=== PATIENT | female | born 1935 | race Caucasian/White ===

== ENCOUNTER 2022-04-23 20:41 | Emergency (ER) | payer MEDICARE, BC, SELFPAY ==
[2022-04-23] VITALS (10 sets, daily range): BP systolic 108–126; BP diastolic 53–81; PULSE 73–125; RESP 18; TEMP 36.3; O2SAT 96–100; BMI 24.0
--- NOTE | 2022-04-23 20:54 | CRLHL7_ITS ---
For Patients: As a result of the Century Cures Act, medical imaging exams and procedure reports are released immediately into your electronic medical record. You may view this report before your referring provider. If you have questions, please contact your health care provider. INDICATION: Fall. TECHNIQUE: Noncontrast CT images acquired through the brain. COMPARISON: None. FINDINGS: Prominence of the ventricles and sulci compatible with [id number] diffuse cerebral volume loss. No mass effect or midline shift. The hickman-white differentiation is maintained. No acute intracranial hemorrhage or pathologic extra-axial fluid collection. Scattered hypoattenuation in the supratentorial white matter, suggestive of mild chronic microvascular ischemic changes. Intracranial atherosclerotic calcifications. Thinning of the ocular lenses. Small subgaleal hematoma anterior right frontal scalp. No calvarial fracture. Minimal right maxillary sinus mucosal thickening. The mastoid air cells are clear. IMPRESSION: 1. No acute intracranial hemorrhage or mass effect. 2. Small subgaleal hematoma in the anterior right frontal scalp. No calvarial fracture. Please note that all CT scans at this facility use dose modulation, iterative reconstruction, and/or weight-based dosing when appropriate to reduce radiation dose to as low as reasonably achievable. Dictated by Scott Omer MD @ 04/23/2022 9:26:45 PM (Electronically Signed)
[2022-04-23] MEDS: 0.9 % SODIUM CHLORIDE 500 ML 500 ML IV (21:17)
[2022-04-23] MEDS: METOPROLOL TARTRATE 1 MG/ML inj 5 MG IVP (21:17)
--- NOTE | 2022-04-23 21:30 | ED_ITS ---
HPI - General Adult General Chief complaint: Head Injury/Pain Stated complaint: Fell and Hit Head,On Blood Thinners Time Seen by Provider: 04/23/22 20:47 Source: patient and family Mode of arrival: ambulatory Limitations: no limitations History of Present Illness HPI narrative: 87-year-old female presenting to the ER approximately 2 hours after she fell and hit her face on the floor. She states that she tripped her kitchen and fell face forward. She states that she hit the top of her forehead on the ground. She was able to get up without significant assistance and she has been acting normally since. However she is on blood thinners and she has a granddaughter who was a nurse who told her that she should present to the ER for evaluation. Patient tells me that she does not have a headache, no nausea or vomiting. She denies dizziness or being lightheaded. No blurry vision or changes in her hearing. She denies any chest pain or shortness of breath. Patient states that she is on a blood thinner because she had a valve replaced. She denies any other injury. Denies any wrist or arm pain. Related Data Home Medications Medication Instructions Recorded Confirmed albuterol sulfate 90 mcg/actuation g inhalation 02/25/22 02/25/22 aerosol inhaler atorvastatin 10 mg tablet 10 mg PO QHS 02/25/22 02/25/22 blood sugar diagnostic (OneTouch #10 ea 02/25/22 02/25/22 Ultra Test strips) calcium carb,cit 300 mg-D3 200 1 tab PO QDAY 02/25/22 02/25/22 unit-min no.34-genistein 13.5 mg tablet (Citracal Plus Bone Density Builder) glipizide 5 mg tablet, extended ea PO 02/25/22 02/25/22 release 24 hr lisinopril 5 mg tablet 5 mg PO QDAY 02/25/22 02/25/22 metformin 500 mg tablet,extended ea PO 02/25/22 02/25/22 release 24 hr warfarin 5 mg tablet 5 mg PO 5XW 02/25/22 02/25/22 Allergies Allergy/AdvReac Type Severity Reaction Status Date / Time No Known Drug Allergies Allergy Verified 02/25/22 12:59 Review of Systems Status of ROS: Reports: 10 or more systems reviewed and unremarkable except as noted in History and below PFSH PFSH Social History Smoking Status: Never smoker How often do you have a drink containing alcohol: never AUDIT-C Alcohol total score: 0 Non-prescribed substance use: denies use Exam Narrative: Exam Narrative: Well-nourished well-developed patient in no acute distress. Alert and oriented x3. Answers questions appropriately. Mood and affect are appropriate. Though ts are goal oriented and rational. No tangential or magical thinking noted. Patient speaks in full sentences without needing to catch her breath. Speech is not slurred or pressured. GCS is 15. There is no obvious bleeding. She is speaking and breathing without HEENT: Normocephalic. Pupils are equally round reactive to light. Extraocular muscles are intact. Conjunctivae are moist without any icterus noted. Moist mucous membranes. Posterior pharynx is normal. Neck is soft without any lymphadenopathy or thyromegaly. No masses are appreciated. She has no tenderness to palpation at the neck. She has decreased range of motion with flexion, extension, side way bending and rotation at the neck-patient is tells me that this is normal for her and she has no new neck pain today. She does have a hematoma over the forehead just at the hairline on the right side. Cardiovascular: Tachycardic, irregularly irregular. Lungs: Clear to auscultation bilaterally no wheezes rhonchi or rales are appreciated. Patient takes deep breaths without any discomfort.No guarding or rebound. No masses or organomegaly appreciated. Extremities: Bilateral lower extremities are without edema. Skin: Well perfused without any obvious rashes. Const: Vital Signs, click to edit/add: Vital Signs - 24 hr 04/23/22 20:57 04/23/22 20:55 04/23/22 21:13 Temperature 97.3 F L Pulse Rate 83 Pulse Rate [Left] 125 H Respiratory Rate 18 Blood Pressure 108/81 Blood Pressure [Ri ght Upper Arm] 112/76 Pulse Oximetry 96 98 Oxygen Delivery Me thod Room Air 04/23/22 21:15 04/23/22 21:17 04/23/22 21:32 Temperature Pulse Rate 92 76 79 Pulse Rate [Left] Respiratory Rate 18 18 18 Blood Pressure 125/71 110/61 116/66 Blood Pressure [Ri ght Upper Arm] Pulse Oximetry 99 97 97 Oxygen Delivery Me thod 04/23/22 21:47 04/23/22 22:02 04/23/22 22:17 Temperature Pulse Rate 74 76 73 Pulse Rate [Left] Respiratory Rate 18 18 18 Blood Pressure 115/61 110/55 L 126/64 Blood Pressure [Ri ght Upper Arm] Pulse Oximetry 97 97 97 Oxygen Delivery Me thod 04/23/22 22:32 Temperature Pulse Rate 76 Pulse Rate [Left] Respiratory Rate 18 Blood Pressure 112/53 L Blood Pressure [Ri ght Upper Arm] Pulse Oximetry 100 Oxygen Delivery Me thod Course Course Hospital Course: Patient proceeded to head CT. In the meantime given her irregularly irregular rhythm with a pulse of 125 we did do an EKG which showed atrial fibrillation with a pulse of 100. Patient fluctuated between 100 and 130. When asked about a history of atrial fibrillation patient was not sure. And she is on anticoagulation for a valve replacement. I was able to pull up her medical history through [employer], there is no mention of a atrial fibrillation in her history. IV was started and patient received 500 mL of normal saline and 5 mg of IV metoprolol. Shortly after that patient flipped back into normal sinus rhythm. Blood pressures remained stable. Repeat EKG showing sinus rhythm with a first- degree AV block and PVCs. She also has a left bundle branch block. Compared this with a previous EKG and the PVCs and the left bundle-branch block are not new. Head CT was read without any acute bleed. Remained asymptomatic while she was here. Proceeded with lab work which was unremarkable. Vital Signs Vital signs: Initial Vital Signs Pulse Oximetry 98 04/23/22 20:55 Vital Signs Pulse Oximetry 98 04/23/22 20:55 Temperature 97.3 F L 04/23/22 20:57 Pulse Rate 76 04/23/22 22:32 Respiratory Rate 18 04/23/22 22:32 Blood Pressure 112/53 L 04/23/22 22:32 Pulse Oximetry 100 04/23/22 22:32 Oxygen Delivery Method 04/23/22 20:57 Medical Decision Making MDM Narrative Medical decision making narrative: 87-year-old female status post a fall with a subgaleal hematoma-we discussed symptomatic treatment reasons for follow-up. Atrial fibrillation-patient switch back to normal sinus rhythm. She is already on anticoagulation. Recommend she follow up with her primary care for further discussion. Medical Records Medical records reviewed: Yes I reviewed the patient's medical records Lab Data Lab results reviewed: Yes I reviewed the patient's lab results Labs: Lab Results 04/23/22 04/23/22 04/23/22 Range/Units 21:03 21:10 21:10 WBC 7.39 (4.50-11.00) K/uL RBC 4.58 (4.00-5.20) m/uL Hgb 12.7 (12.0-16.0) gm/dL Hct 39.5 (33.0-51.0) % MCV 86 (80-100) fL MCH 28 (26-34) pg MCHC 32 (32-36) gm/dL RDW Coeff of Bernardo 14.2 (11.5-15.5) % Plt Count 237 (140-440) K/uL Neut % (Auto) 72.7 H (42.0-72.0) % Lymph % (Auto) 15.4 L (20-44) % [place] % (Auto) 8.1 (0.0-11.0) % Eos % (Auto) 3.2 (0.0-7.0) % Baso % (Auto) 0.5 (0.0-3.0) % Neut # (Auto) 5.40 (1.7-7.0) K/uL Lymph # (Auto) 1.10 (0.90-2.90) K/uL [place] # (Auto) 0.60 (0.00-0.90) K/UL Eos # (Auto) 0.24 (0.00-0.50) K/uL Baso # (Auto) 0.04 (0.00-0.30) K/uL Abs Immat Gran (auto) 0.01 (0.00-0.30) K/uL Imm/Tot Granulo (auto) 0.1 % Sodium 139 (135-149) mmol/L Potassium 4.2 (3.6-5.1) mmol/L Chloride 105 (96-114) mmol/L Carbon Dioxide 29 (20-32) mmol/L BUN 19 (7-30) mg/dL Creatinine 0.7 (0.5-1.5) mg/dL Estimated Creat Clear 29.54 Estimated GFR 85 ml/min Glucose 181 H (60-115) mg/dL Calcium 9.0 (8.4-10.6) mg/dL Total Bilirubin 1.6 H (0.1-1.5) mg/dL Direct Bilirubin 0.0 (0.0-0.5) mg/dL AST 24 (12-35) U/L ALT 20 (4-35) U/L Alkaline Phosphatase 85 (40-150) U/L Troponin I < 0.01 L (0.01-0.04) ng/mL Total Protein 7.3 (6.0-8.3) g/dL Albumin 4.5 (3.3-5.0) g/dL TSH (0.270-4.20) uIU/mL SARS-CoV-2 (PCR) Negative SARS-CoV-2 (Negative) Influenza Type A (PCR) Negative PCR FLU A (Negative) Influenza Type B (PCR) Negative PCR FLU B (Negative) RSV (PCR) Negative PCR RSV (Negative) 04/23/22 Range/Units 21:10 WBC (4.50-11.00) K/uL RBC (4.00-5.20) m/uL Hgb (12.0-16.0) gm/dL Hct (33.0-51.0) % MCV (80-100) fL MCH (26-34) pg MCHC (32-36) gm/dL RDW Coeff of Bernardo (11.5-15.5) % Plt Count (140-440) K/uL Neut % (Auto) (42.0-72.0) % Lymph % (Auto) (20-44) % [place] % (Auto) (0.0-11.0) % Eos % (Auto) (0.0-7.0) % Baso % (Auto) (0.0-3.0) % Neut # (Auto) (1.7-7.0) K/uL Lymph # (Auto) (0.90-2.90) K/uL [place] # (Auto) (0.00-0.90) K/UL Eos # (Auto) (0.00-0.50) K/uL Baso # (Auto) (0.00-0.30) K/uL Abs Immat Gran (auto) (0.00-0.30) K/uL Imm/Tot Granulo (auto) % Sodium (135-149) mmol/L Potassium (3.6-5.1) mmol/L Chloride (96-114) mmol/L Carbon Dioxide (20-32) mmol/L BUN (7-30) mg/dL Creatinine (0.5-1.5) mg/dL Estimated Creat Clear Estimated GFR ml/min Glucose (60-115) mg/dL Calcium (8.4-10.6) mg/dL Total Bilirubin (0.1-1.5) mg/dL Direct Bilirubin (0.0-0.5) mg/dL AST (12-35) U/L ALT (4-35) U/L Alkaline Phosphatase (40-150) U/L Troponin I (0.01-0.04) ng/mL Total Protein (6.0-8.3) g/dL Albumin (3.3-5.0) g/dL TSH 1.850 (0.270-4.20) uIU/mL SARS-CoV-2 (PCR) (Negative) Influenza Type A (PCR) (Negative) Influenza Type B (PCR) (Negative) RSV (PCR) (Negative) Imaging Data CT scan - head: Attestation: I have reviewed the pertinent imaging results. Radiologist's impression: Noncontrast CT images acquired through the brain. COMPARISON: None. FINDINGS: Prominence of the ventricles and sulci compatible with [id number] diffuse cerebral volume loss. No mass effect or midline shift. The hickman-white differentiation is maintained. No acute intracranial hemorrhage or pathologic extra-axial fluid collection. Scattered hypoattenuation in the supratentorial white matter, suggestive of mild chronic microvascular ischemic changes. Intracranial atherosclerotic calcifications. Thinning of the ocular lenses. Small subgaleal hematoma anterior right frontal scalp. No calvarial fracture. Minimal right maxillary sinus mucosal thickening. The mastoid air cells are clear. IMPRESSION: 1. No acute intracranial hemorrhage or mass effect. 2. Small subgaleal hematoma in the anterior right frontal scalp. No calvarial fracture. ECG Data Attestation: I personally reviewed and interpreted this ECG as follows: Discharge Plan Discharge Clinical Impression: Closed head injury, Atrial fibrillation with RVR Patient Disposition: Home, Self-Care Condition: Stable Additional Instructions: As far as her head injury goes it should heal with time. You may experience increased bruising that travels down your face over the next week or 2. This is normal and you should not be concerned. Okay to take Tylenol if you are having a headache. Return to the ER if you start vomiting or become confused. You were found to be in atrial fibrillation today. You have since converted back to normal sinus rhythm. I would recommend you have a follow-up with your primary care provider in the next 1-2 weeks to discuss any next steps necessary. You should return to the ER if you should have chest pain, increased dizziness or lightheadedness and your pulse is racing. Prescriptions: No Action warfarin 5 mg tablet 5 mg PO 5XW Label Comments: 2.5mg PO 2xW glipizide 5 mg tablet extended release 24hr PO Label Comments: TAKE 1 TABLET (5 MG) BY MOUTH ONCE DAILY BEFORE A MEAL. metformin 500 mg tablet extended release 24 hr PO Label Comments: TAKE 2 TABLETS BY MOUTH IN THE MORNING AND 2 TABS IN THE EVENING WITH MEALS. lisinopril 5 mg tablet 5 mg PO QDAY atorvastatin 10 mg tablet 10 mg PO QHS (DME) OneTouch Ultra Test Strip See Rx Instructions .ROUTE .MEDSUPPLY Qty: 10 Label Comments: TEST 1 TIME/DAY Rx Instructions: As directed albuterol sulfate 90 mcg/actuation HFA aerosol inhaler inhalation Citracal Plus Bone Density 300-200-13.5 mg-unit-mg tablet 1 tab PO QDAY Follow Up/Referrals: Provider,Not a Local [Referring] - Stand Alone Forms: [facility] Info Instructions
[2022-04-23 21:37] LABS: Basophils Absolute Auto 0.04 K/uL (0.00-0.30); Basophils Percent Auto 0.5 % (0.0-3.0); Eosinophils Absolute Auto 0.24 K/uL (0.00-0.50); Eosinophils Percent Auto 3.2 % (0.0-7.0); Hematocrit 39.5 % (33.0-51.0); Hemoglobin* 12.7 gm/dL (12.0-16.0); Immature Granulocytes Abs Auto 0.01 K/uL (0.00-0.30); Immature Granulocytes Pct Auto 0.1 %; Lymphocytes Percent Auto 15.4 % (20-44); Mean Corpuscular HGB Conc 32 gm/dL (32-36); Mean Corpuscular Hemoglobin 28 pg (26-34); Mean Corpuscular Volume 86 fL (80-100); Monocytes Percent Auto 8.1 % (0.0-11.0); Neutrophils Percent Auto 72.7 % (42.0-72.0); Platelet Count* 237 K/uL (140-440); RDW Coefficient of Variation % 14.2 % (11.5-15.5); Red Blood Count 4.58 m/uL (4.00-5.20); White Blood Count* 7.39 K/uL (4.50-11.00)
[2022-04-23 21:46] LABS: Slide Review Reflex No
[2022-04-23 21:54] LABS: Albumin* 4.5 g/dL (3.3-5.0); Chloride* 105 mmol/L (96-114); Potassium* 4.2 mmol/L (3.6-5.1); Sodium* 139 mmol/L (135-149)
[2022-04-23 21:56] LABS: Creatinine* 0.7 mg/dL (0.5-1.5); Est. Creatinine Clearance* 29.54; Estimated Glomerular Filt Rate 85 ml/min
[2022-04-23 21:57] LABS: Alanine Aminotransferase* 20 U/L (4-35); Alkaline Phosphatase* 85 U/L (40-150); Aspartate Amino Transferase* 24 U/L (12-35); Bilirubin Total* 1.6 mg/dL (0.1-1.5); Blood Urea Nitrogen* 19 mg/dL (7-30); Carbon Dioxide* 29 mmol/L (20-32); Glucose* 181 mg/dL (60-115); Total Protein* 7.3 g/dL (6.0-8.3)
[2022-04-23 22:09] LABS: Troponin I* < 0.01 ng/mL (0.01-0.04)
[2022-04-23 22:21] LABS: PCR FLU A Negative PCR FLU A (Negative); PCR FLU B Negative PCR FLU B (Negative); PCR RSV Negative PCR RSV (Negative)
[2022-04-23 22:22] LABS: SARS PCR* Negative SARS-CoV-2 (Negative)
== END 2022-04-23 23:03 | disposition home or self-care (01) ==
PROVIDERS: Emergency Provider Family Medicine; PCP Family Medicine
DX: S09.90XA Unspecified injury of head, initial encounter (principal); I48.20 Chronic atrial fibrillation, unspecified
CPT/HCPCS: 36415; 70450; 80048; 80076; 84443; 84484; 85025; 87502; 87634; 87635; 93005; 94761; 99285; J7120

== ENCOUNTER 2022-07-29 18:29 | Emergency (ER) | payer MEDICARE, BC, SELFPAY ==
[2022-07-29 18:45] VITALS: BP 163/83; PULSE 88; RESP 18; TEMP 36.6; O2SAT 93; BMI 24.2
--- NOTE | 2022-07-29 18:54 | CRLHL7_ITS ---
For Patients: As a result of the Century Cures Act, medical imaging exams and procedure reports are released immediately into your electronic medical record. You may view this report before your referring provider. If you have questions, please contact your health care provider. INDICATION: Trauma, fall. TECHNIQUE: Head CT without contrast. COMPARISON: 04/23/2022. FINDINGS: CSF spaces: Within normal limits for age. Brain parenchyma: Mild to moderate diffuse volume loss. Patchy white matter low attenuation changes, nonspecific but likely reflecting chronic small vessel ischemic disease. No sign of mass, hemorrhage, or midline shift. Atherosclerotic calcifications of the cavernous carotids and carotid siphons. Skull base and calvarium: Please refer to separate CT face regarding facial findings. Mastoid air cells are clear. No skull fractures. IMPRESSION: 1. No acute intracranial hemorrhage or mass effect. 2. Please refer to separate CT face regarding facial findings. Please note that all CT scans at this facility use dose modulation, iterative reconstruction, and/or weight-based dosing when appropriate to reduce radiation dose to as low as reasonably achievable. Dictated by Brent Phillips MD @ 07/29/2022 7:43:28 PM (Electronically Signed)
--- NOTE | 2022-07-29 19:02 | CRLHL7_ITS ---
For Patients: As a result of the Cures Act, medical imaging exams and procedure reports are released immediately into your electronic medical record. You may view this report before your referring provider. If you have questions, please contact your health care provider. INDICATION: Facial injury. TECHNIQUE: CT maxillofacial without contrast. COMPARISON: CT head 04/23/2022. FINDINGS: Facial bones: Acute nondisplaced fracture of the superolateral right orbit at the zygomaticofrontal suture. Chronic fracture deformity of the nasal bones, unchanged. Orbits and globes: Right periorbital hematoma. Globes are intact. No sign of intraorbital hemorrhage or emphysema. Sinuses: No acute or significant findings. Soft tissues: Right malar contusion. IMPRESSION: 1. Acute nondisplaced superolateral right orbit fracture at the zygomaticofrontal suture. 2. Right periorbital hematoma. Globes are intact. 3. Right malar contusion. Please note that all CT scans at this facility use dose modulation, iterative reconstruction, and/or weight-based dosing when appropriate to reduce radiation dose to as low as reasonably achievable. Dictated by Brent Phillips MD @ 07/29/2022 7:54:12 PM (Electronically Signed)
[2022-07-29 19:30] VITALS: RESP 26; O2SAT 87
[2022-07-29 19:37] VITALS: RESP 24; O2SAT 98
[2022-07-29 19:38] VITALS: O2SAT 98
--- NOTE | 2022-07-29 19:52 | ED.GENADULT ---
HPI - General Adult General Chief complaint: Laceration/Wound Stated complaint: fell - bleeding above RT eye and fingers Time Seen by Provider: 07/29/22 18:32 Source: patient Mode of arrival: ambulatory Limitations: no limitations History of Present Illness HPI narrative: 87-year-old female coming in today after sustaining a fall. Patient was walking across the parking lot after [employer] and stumbled and fell forward onto her face. She did not lose consciousness. She has had no confusion, vomiting or headache. She does have a laceration to the right eyebrow area which she states does hurt her. She was able to get up with help of her . She does tell me that she fell about 3 months ago as well. She is not interested in talking about any changes in living situation today. She denies any neck or back pain. She states that she did hurt her fingers as well but her legs are intact. Patient is on a blood thinner. She denies any vision loss or blurry vision. No diplopia. Related Data Home Medications Medication Instructions Recorded Confirmed albuterol sulfate 90 mcg/actuation g inhalation 02/25/22 07/21/22 aerosol inhaler atorvastatin 10 mg tablet 10 mg PO QHS 02/25/22 07/21/22 blood sugar diagnostic (OneTouch #10 ea 02/25/22 07/21/22 Ultra Test strips) calcium carb,cit 300 mg-D3 200 1 tab PO QDAY 02/25/22 07/21/22 unit-min no.34-genistein 13.5 mg tablet (Citracal Plus Bone Density Builder) glipizide 5 mg tablet, extended ea PO 02/25/22 07/21/22 release 24 hr lisinopril 5 mg tablet 5 mg PO QDAY 02/25/22 07/21/22 metformin 500 mg tablet,extended ea PO 02/25/22 07/21/22 release 24 hr warfarin 5 mg tablet 5 mg PO 5XW 02/25/22 07/21/22 metoprolol succinate 25 mg tab PO 05/16/22 07/21/22 tablet,extended release 24 hr Allergies Allergy/AdvReac Type Severity Reaction Status Date / Time No Known Drug Allergies Allergy Verified 07/21/22 10:58 Review of Systems Status of ROS: Reports: 10 or more systems reviewed and unremarkable except as noted in History and below PFSH PFSH Surgical History History of hysterectomy Social History Smoking Status: Never smoker How often do you have a drink containing alcohol: never AUDIT-C Alcohol total score: 0 Non-prescribed substance use: denies use service: No Exam Narrative: Exam Narrative: Elderly, thin but well-developed patient in no acute distress. Alert and oriented x3. Answers questions appropriately. Mood and affect are appropriate. Thoughts are goal oriented and rational. No tangential or magical thinking noted. Patient speaks in full sentences without needing to catch her breath. Speech is not slurred or pressured. GCS is 15. HEENT: Normocephalic. Pupils are equally round reactive to light. Extraocular muscles are intact. She has no pain with extraocular movement. Conjunctivae are moist without any icterus noted. Moist mucous membranes. Posterior pharynx is normal. Neck is soft without any lymphadenopathy or thyromegaly. Patient has a hematoma over the right eyebrow area with a superficial abrasion and a laceration that is about a cm and a half in length. That laceration penetrates through the dermis into the subcutaneous tissue but does not penetrate through the subcutaneous tissue. She has no abrasions or lacerations to the nose cheeks or remainder of the face. She has no tenderness to palpation at the neck. No cervical spine tenderness. She has full range of motion at the neck with flexion, extension, side way bending and rotation without difficulty or discomfort. Cardiovascular: Heart is regular rate and rhythm. Lungs: Clear to auscultation bilaterally no wheezes rhonchi or rales are appreciated. Abdomen: Soft and nontender with normal bowel sounds. No guarding or rebound. Extremities: Bilateral lower extremities show trace edema. Normal DP and PT pulses. No evidence of trauma. She does have a very small laceration to the ring finger on the right hand just proximal to the nail. Does not appear that this will need a suture. She also has a avulsion laceration to the tip of the finger on the left hand middle finger where laceration extends just above the tip of the nail into the tip of the finger. Skin: Well perfused. Strength is 5/5 of the upper and lower extremities. Cranial nerves 3-12 are normal. [id number] is normal. There is no nystagmus either horizontally or vertically. Gait is normal. Const: Vital Signs, click to edit/add: Vital Signs - 24 hr 07/29/22 18:45 07/29/22 19:30 07/29/22 19:37 Temperature 97.8 F Pulse Rate [Pulse Oximeter] 88 Respiratory Rate 18 26 H 24 Blood Pressure [Le ft Upper Arm] 163/83 H Pulse Oximetry 93 87 L 98 Oxygen Delivery Me thod Room Air Room Air Nasal Cannula Oxygen Flow Rate 2 07/29/22 19:38 07/29/22 19:38 Temperature Pulse Rate [Pulse Oximeter] Respiratory Rate Blood Pressure [Le ft Upper Arm] Pulse Oximetry 98 98 Oxygen Delivery Me thod Nasal Cannula Oxygen Flow Rate 2 Course Course Hospital Course: Patient went to head CT right away. Head CT, read by me, did not show any acute intracranial bleeding. Patient proceeded with a facial CT and while we were waiting for results with the facial CT we proceeded with suturing her lacerations. Right hand was cleaned in the usual sterile manner and dressed appropriately no suture was necessary for the small laceration. Left hand was cleaned in the usual sterile manner and anesthetized with lidocaine, 2 sutures were placed to hold the skin down against the top of the nail. Wound was then cleaned and dressed. On her face, the area was cleaned with wound cleanser after anesthesia was provided with lidocaine. Laceration was sutured with 4-0 Ethilon. Patient tolerated the procedure well. The other abrasion was cleaned and dressed. Facial CT results came back and showed a?nondisplaced superolateral right orbit fracture at the zygomaticofrontal suture Given that the patient had no difficulty with extraocular movement and no visual changes, no further consultations were pursued. Right before suturing, patient had an episode over she became acutely short of breath and her oxygen saturation dropped to 89%. This episode lasted a few minutes before it completely resolved. Patient tells me that this occurs with her periodically, especially in the morning and is not necessarily unusual. Vital Signs Vital signs: Initial Vital Signs Temperature 97.8 F 07/29/22 18:45 Temperature Source Temporal Artery Scan 07/29/22 18:45 Pulse Rate 88 07/29/22 18:45 Respiratory Rate 18 07/29/22 18:45 Blood Pressure 163/83 H 07/29/22 18:45 Blood Pressure Mean 109 07/29/22 18:45 Pulse Oximetry 93 07/29/22 18:45 Oxygen Delivery Method 07/29/22 18:45 Vital Signs Temperature 97.8 F 07/29/22 18:45 Pulse Rate 88 07/29/22 18:45 Respiratory Rate 18 07/29/22 18:45 Blood Pressure 163/83 H 07/29/22 18:45 Pulse Oximetry 93 07/29/22 18:45 Oxygen Delivery Method 07/29/22 18:45 Temperature 97.8 F 07/29/22 18:45 Pulse Rate 88 07/29/22 18:45 Respiratory Rate 24 07/29/22 19:37 Blood Pressure 163/83 H 07/29/22 18:45 Pulse Oximetry 98 07/29/22 19:38 Oxygen Delivery Method 07/29/22 19:38 Oxygen Flow Rate 2 07/29/22 19:38 Medical Decision Making MDM Narrative Medical decision making narrative: 87-year-old female status post fall with closed head injury and facial fractures per above. We discussed wound hygiene, signs and symptoms of infections, reasons to return for follow-up. And suture removal in approximately 1 week. Also discussed hospital observation overnight verses home discharge and patient states that she feels strong and safe to go home and does not wish to be hospitalized at this time. Medical Records Medical records reviewed: Yes I reviewed the patient's medical records Imaging Data CT scan - head: Attestation: I have reviewed the pertinent imaging results. Radiologist's impression: Head CT without contrast. COMPARISON: 04/23/2022. FINDINGS: CSF spaces: Within normal limits for age. Brain parenchyma: Mild to moderate diffuse volume loss. Patchy white matter low attenuation changes, nonspecific but likely reflecting chronic small vessel ischemic disease. No sign of mass, hemorrhage, or midline shift. Atherosclerotic calcifications of the cavernous carotids and carotid siphons. Skull base and calvarium: Please refer to separate CT face regarding facial findings. Mastoid air cells are clear. No skull fractures. IMPRESSION: 1. No acute intracranial hemorrhage or mass effect. 2. Please refer to separate CT face regarding facial findings. CT facial bones: Attestation: I have reviewed the pertinent imaging results. Radiologist's impression: CT maxillofacial without contrast. COMPARISON: CT head 04/23/2022. FINDINGS: Facial bones: Acute nondisplaced fracture of the superolateral right orbit at the zygomaticofrontal suture. Chronic fracture deformity of the nasal bones, unchanged. Orbits and globes: Right periorbital hematoma. Globes are intact. No sign of intraorbital hemorrhage or emphysema. Sinuses: No acute or significant findings. Soft tissues: Right malar contusion. IMPRESSION: 1. Acute nondisplaced superolateral right orbit fracture at the zygomaticofrontal suture. 2. Right periorbital hematoma. Globes are intact. 3. Right malar contusion. Discharge Plan Discharge Clinical Impression: Orbital fracture, Finger laceration, Facial laceration, Fall Patient Disposition: Home w/ Parent or Adult Condition: Stable Additional Instructions: Okay to take Tylenol as needed/as directed for discomfort or headache. Okay to ice the face today, do not apply ice directly to skin. I do want you to follow-up with your primary care provider 1st thing next week. Return to the ER if you develop confusion, vomiting, or changes in your vision. Prescriptions: No Action warfarin 5 mg tablet 5 mg PO 5XW Label Comments: 2.5mg PO 2xW glipizide 5 mg tablet extended release 24hr PO Label Comments: TAKE 1 TABLET (5 MG) BY MOUTH ONCE DAILY BEFORE A MEAL. metformin 500 mg tablet extended release 24 hr PO Label Comments: TAKE 2 TABLETS BY MOUTH IN THE MORNING AND 2 TABS IN THE EVENING WITH MEALS. lisinopril 5 mg tablet 5 mg PO QDAY atorvastatin 10 mg tablet 10 mg PO QHS (DME) OneTouch Ultra Test Strip See Rx Instructions .ROUTE .MEDSUPPLY Qty: 10 Label Comments: TEST 1 TIME/DAY Rx Instructions: As directed albuterol sulfate 90 mcg/actuation HFA aerosol inhaler inhalation Citracal Plus Bone Density 300-200-13.5 mg-unit-mg tablet 1 tab PO QDAY metoprolol succinate 25 mg tablet extended release 24 hr PO Follow Up/Referrals: Siddharth Marquez MD [Primary Care Provider] - Stand Alone Forms: [employer] Info Instructions
[2022-07-29 20:17] VITALS: PULSE 83; RESP 18; O2SAT 93
== END 2022-07-29 20:46 | disposition home or self-care (01) ==
PROVIDERS: Emergency Provider Family Medicine; PCP Family Medicine
DX: S01.111A Laceration without foreign body of right eyelid and periocular area, initial encounter (principal); S02.31XA Fracture of orbital floor, right side, initial encounter for closed fracture; W01.0XXA Fall on same level from slipping, tripping and stumbling without subsequent striking against object, initial encounter; S61.214A Laceration without foreign body of right ring finger without damage to nail, initial encounter
CPT/HCPCS: 12011; 70450; 70486; 94761; 99283; 99284

== ENCOUNTER 2022-11-08 11:15 | Outpatient (RCR) | payer MEDICARE, BC, SELFPAY ==
--- NOTE | 2022-08-29 16:25 | PT.OPDN ---
[facility] Daily Note [facility] Daily Note Start: 06/14/22 12:55 Freq: Status: Active Protocol: Document 08/29/22 14:24 LSL (Rec: 08/29/22 15:19 LSL [id number]) E-signed By Roma Espinosa, PT PT OP Daily Progress Note Visit Information Note Type Daily Note,Recert/Progress Note Visit Number [id number] Insurance Authorized Visits no auth required Physician Authorized Visits eval and treat Insurance Information Recert Due Date 09/09/22 Insurance Name Medicare B Medical Diagnosis S49.91XA - injury of R shoulder, initial encounter M75.101, M12.811 - rotator cuff tear arthropathy of Right shoulder Treating Diagnosis M25.511 - R shoulder pain M25.611 - R shoulder stiffness Referring Manda Flores/Jeff Subjective Subjective Pt. reports her shoulder is feeling pretty good. I still can't reach up into the cupboard. Combing hair remains a little difficult. Home Exercise Home Exercise Comments [id number] codmans, KYARAOM shoulder protraction, isometric sh flexion, iso sh abd, iso sh add, seated AROM ER, seated shoulder press off chair, seated extension over back of chair, TB row, TB sh extension , S/L ER, S/L hor abd, supine flexion, table flexion slides, table circles CW/CCW, table rainbow slides Objective Other/Pertinent Objective PROM R shoulder flexion 165, abduction 169, IR 60, ER 69 AROM flexion 72, abduction 53, IR (HBB) L5, ER 59 STRENGTH - bicep and tricep 5/ 5, IR 5/5, ER 3+/5, supraspinatus 3/5, shoulder flexion 4/5 Patient Instructed in Risks/Benefits Yes Therapeutic Exercise Therapeutic Exercise Minutes (minutes) 40 Therapeutic Exercise: To Restore -pulleys - flexion 4' Functional Status -seated ER 90 degrees abduction -seated AAROM abduction 5x iso (held) -seated AAROM flexion 5x iso ( held) -seated AAROM scaption 5x iso (held) -supine flexion 2x10, PT stabilizing scapula -supine hor add 2x10 -L sidelying R ER 2#,0# 10x ea , 2# eccentric 10x -S/L hor abd 2x10 -standing wand abduction 10x( HELD) -slanted flexion push 2# 2x10 -seated UE flexion with hands clasped (HELD) with measurements for re-cert Treatment Minutes Timed Code Treatment Minutes 40 Total Treatment Time 40 Billing Units Therapeutic Exercise Units 3 Assessment/Impression Assessment/Impression Arin continues to make slow strength and ROM gains on a 1x /week program. She has made some significant improvements in her AROM over the past 3 weeks. She still needs assistance to maintain proper form and progress into new ranges and strengthening exercises. I expect this to continue for another 2-3 months weekly to every other week. Plan of Care Physical Therapy Goals STG - To be completed in 2-3 weeks: 1. Pt will demonstrate improved shoulder flexion and abduction by 15+ so that she may brush teeth with dominant hand. (MET) 2. Pt will report reduction in shoulder pain by factor of 2 so that they may sleep without waking due to pain while shifting position in the night .(MET) 3. Pt to report consistency with I performance of HEP to allow for best chance of healing tendon and improving shoulder strength and ROM. LTG - To be completed in 8-12 weeks: 1. Pt to be I with HEP so that they may I manage progression of symptoms. 2. Pt will report ability to lay on R shoulder in bed without increase in pain so that they may sleep in preferred position to achieve better night's sleep. 3. Pt will demo ability to raise R arm to 90 degrees without increase in pain so that she may reach for cans of soup in pantry. 4. Pt will demo grossly 4/5 MMT strength for all shoulder motions on R to allow for ease of performing activities including washing and putting away dishes. Daily Plan of Care Continue per POC Recertification Information Recertification Start Date 09/09/22 Recertification Due Date 12/02/22 Reasons to Continue Skilled Therapy less than 90 degrees elevation , strength 3/5 or less in multiple shoulder muscles, impaired ability to comb hair and reach into cabinets Rehabilitation Potential Good Continued Plan of Care and Interventions seth, BUBBA re-ed, manual therapy with emphasis on therex Provider Signature Shows Agreement With POC & Medical Necessity Physician Comment/Change Comment or Changes Physician NPI Number #
== END 2023-01-10 15:52 | disposition home or self-care (01) ==
PROVIDERS: PCP Family Medicine; Visit Provider Orthopaedic Surgery Sports Medicine
DX: S49.91XA Unspecified injury of right shoulder and upper arm, initial encounter (principal); M75.101 Unspecified rotator cuff tear or rupture of right shoulder, not specified as traumatic; M12.811 Other specific arthropathies, not elsewhere classified, right shoulder; S46.211D Strain of muscle, fascia and tendon of other parts of biceps, right arm, subsequent encounter; M25.511 Pain in right shoulder; M25.611 Stiffness of right shoulder, not elsewhere classified; Z51.89 Encounter for other specified aftercare
CPT/HCPCS: 97032; 97110; 97140; 97161

== ENCOUNTER 2024-03-24 10:55 | Emergency (ER) | payer MEDICARE, BC, SELFPAY ==
--- NOTE | 2024-03-24 10:58 | ED_ITS ---
HPI - General Adult General Date Seen: 03/24/24 Chief complaint: Epistaxis/Nosebleed Stated complaint: Nosebleed Time Seen by Provider: 03/24/24 10:58 History of Present Illness HPI narrative: 89 yo F with a history of aortic valve replacement (mechanical valve, atrial fibrillation, who is on longstanding warfarin anticoagulation. She had been off warfarin for several days because she had a mitral valve clipping yesterday. Her mitral valve procedure was performed at the hospital at [facility]. She was on bridging Lovenox for anticoagulation while she was off her warfarin. She still on Lovenox and was restarted on warfarin last night after her successful procedure. She notes that she had a small nosebleed from her left nostril yesterday while she was of the hospital at [place] but was easily controlled. This morning about 8:00 a.m. she had recurrence of nose bleeds. She had more significant bleeding primarily from her left nostril but some from the right. She was also experiencing some blood dripping down the back of her throat. She had a nasal clip from the hospital yesterday and applied it but was not able to get the nose bleed stopped. She and her actually called the ambulance and. Ultimately they came here to the ER by private car. She still having active nose bleeding, mostly from her left nostril but also from the right. Fortunately she is not having any lightheadedness or dizziness. No trouble breathing. No other unusual bleeding or bruising. No recent URI. No nasal trauma. Her nose does not her. Related Data Home Medications ?Medication ?Instructions ?Recorded ?Confirmed albuterol sulfate 90 mcg/actuation g inhalation 02/25/22 07/21/22 aerosol inhaler atorvastatin 10 mg tablet 10 mg PO QHS 02/25/22 07/21/22 blood sugar diagnostic (OneTouch #10 ea 02/25/22 07/21/22 Ultra Test strips) calcium 300 mg-vit D3 200 1 tab PO QDAY 02/25/22 07/21/22 gyyl-zbozqoxr-judehuigl 13.5 mg tablet (Citracal Plus Bone Density Builder) glipizide 5 mg tablet, extended ea PO 02/25/22 07/21/22 release 24 hr lisinopril 5 mg tablet 5 mg PO QDAY 02/25/22 07/21/22 metformin 500 mg tablet,extended ea PO 02/25/22 07/21/22 release 24 hr warfarin 5 mg tablet 5 mg PO 5XW 02/25/22 07/21/22 metoprolol succinate 25 mg tab PO 05/16/22 07/21/22 tablet,extended release 24 hr Allergies Allergy/AdvReac Type Severity Reaction Status Date / Time No Known Drug Allergies Allergy Verified 07/21/22 10:58 PFSH [facility] Surgical History History of hysterectomy Social History Smoking Status: Never smoker How often do you have a drink containing alcohol: never AUDIT-C Alcohol total score: 0 Non-prescribed substance use: denies use service: No Exam Narrative: Exam Narrative: Constitutional: Appears well-developed and well-nourished. Alert. Conversant and calm, despite her active nose bleed. She has a nasal clamp in place and is catching some slow dripping blood with a gauze pad.. Non toxic. HENT: Head: Atraumatic. Nose: Externally normal. No signs of deformity or bruising. She has active bleeding from both nostrils, much more significant from the left. She also has signs of a clot in her posterior oropharynx with some slow active bleeding there. Mouth/Throat: Oral mucosa is clear and moist. no trismus. Pharynx normal. Tonsils symmetric. No tonsillar enlargement, erythema, or exudate. Eyes: Conjunctivae normal. EOM normal. Pupils equal, round, and reactive to light. No scleral icterus. Neck: Normal range of motion. Neck supple. No tracheal deviation present. Cardiovascular: Normal rate, regular rhythm. Normal cap refill Pulmonary/Chest: Effort normal. No stridor. No respiratory distress. Musculoskeletal: RUE: Normal range of motion. No tenderness. No deformity LUE: Normal range of motion. No tenderness. No deformity RLE: Normal range of motion. No edema. No tenderness. No deformity LLE: Normal range of motion. No edema. No tenderness. No deformity Neurological: Alert and oriented to person, place, and time. Normal strength. CN II-VII intact. No sensory deficit. GCS eye subscore is 4. GCS verbal subscore is 5. GCS motor subscore is 6. Normal coordination Skin: Skin is warm and dry. No rash noted. No pallor. Normal capillary refill. Psychiatric: Normal mood. Normal affect. Const: Vital Signs, click to edit/add: Vital Signs - 24 hr 03/24/24 11:01 Temperature 97.4 F L Pulse Rate [Pulse Oximeter] 107 H Respiratory Rate 20 Blood Pressure [Ri ght Upper Arm] 117/82 Pulse Oximetry 97 Oxygen Delivery Me thod Room Air Course Course ED Course: Patient was brought directly from triage to ER room for an I met her there. She had active bleeding from her nose, primarily from the left nostril. Initially her left nostril was full of blood and clots so we were not able to visualize any clear source of bleeding. I applied Afrin 1 spray in the left nostril and then we reapplied pressure with a nasal clamp to stop potential anterior bleeds. With this patient had ongoing bleeding but noted significantly slower bleeding. She did not have any more blood coming out of her right nostril. I rechecked. Bleeding had largely stopped was still somewhat active. I had the patient blow her nose to express clots and blood from the left nares. She did get out some clots roughly 1 x 4 cm in size. She then spit out a clot from a electric refrigerator preparer oropharynx. With this she had some ongoing slow active dark red ble eding. Still not able to visualize a clear source for bleeding. Using a mucosal atomizer device I administered 3 mL of 1% lidocaine with epinephrine. That then placed a cotton ball soaked in 5 mL 2% lidocaine into the patient's left nostril. Recheck-cotton ball removed. At this point no further bleeding. She does have a little bit of red blood in her left nostril which I had her gently removed by blowing her nose. After this I was able to visualize a small area that appears to have been the bleeder on the mucosal surface of her left naris. I cauterized the bleeder using silver nitrate. After this there was no further sign of active bleeding. Recheck-no recurrent bleeding. Recheck-did ambulation trial with the nurses and did well. After walking she did have a brief episode where she coughed up a small clot of blood. There is no signs of any active rebleeding at this point. Suspect this blood clot was probably small clot that had been left over in her nasal cavity and was dislodged by walking. Recheck-05 13. Still no recurrent bleeding. Hemodynamically stable. Vital Signs Vital signs: Initial Vital Signs Temperature 97.4 F L 03/24/24 11:01 Temperature Source Temporal Artery Scan 03/24/24 11:01 Pulse Rate 107 H 03/24/24 11:01 Pulse Rhythm Irregular 03/24/24 11:01 Respiratory Rate 20 03/24/24 11:01 Blood Pressure 117/82 03/24/24 11:01 Blood Pressure Mean 93 03/24/24 11:01 Pulse Oximetry 97 03/24/24 11:01 Oxygen Delivery Method Room Air 03/24/24 11:01 Vital Signs Temperature 97.4 F L 03/24/24 11:01 Pulse Rate 107 H 03/24/24 11:01 Respiratory Rate 20 03/24/24 11:01 Blood Pressure 117/82 03/24/24 11:01 Pulse Oximetry 97 03/24/24 11:01 Oxygen Delivery Method Room Air 03/24/24 11:01 Temperature 97.4 F L 03/24/24 11:01 Pulse Rate 107 H 03/24/24 11:01 Respiratory Rate 20 03/24/24 11:01 Blood Pressure 117/82 03/24/24 11:01 Pulse Oximetry 97 03/24/24 11:01 Oxygen Delivery Method Room Air 03/24/24 11:01 Medications Administered Medications: Generic Name Dose Route Start Last Admin Trade Name Freq PRN Reason Stop Dose Admin Oxymetazoline HCl 1 spray 03/24/24 10:58 03/24/24 11:19 Oxymetazoline 0.05% Nasal [place] NOSTRIL-B 1 spray BID PRN Administration Discontinued Medications Generic Name Dose Route Start Last Admin Trade Name Freq PRN Reason Stop Dose Admin Lidocaine HCl 15 ml 03/24/24 10:58 03/24/24 11:20 Lidocaine Viscous 2% 15 Ml Solution SWISH/SWAL 03/24/24 10:59 15 ml ONCE ONE Administration Lidocaine/Epinephrine 20 ml 03/24/24 10:58 03/24/24 11:19 Lidocaine 1%-Epi 1:100,000 INFILTRATI 03/24/24 10:59 20 ml ONCE ONE Administration Silver Nitrate/Potassium Nitrate 1 each 03/24/24 10:58 03/24/24 11:20 Silver Nitrate Applicator 1 Each Stick..Ea. TOPICAL 03/24/24 10:59 1 each ONCE ONE Administration Tranexamic Acid 1,000 mg 03/24/24 11:15 03/24/24 11:19 Tranexamic Acid 100 Mg/Ml Inj TOPICAL 03/24/24 11:16 1,000 mg ONCE ONE Administration Medical Decision Making MDM Narrative Medical decision making narrative: 89-year-old female with mechanical aortic valve and atrial fibrillation who is post be on long-term warfarin anticoagulation. She is currently on warfarin and Lovenox because she had been off warfarin this week for a mitral valve procedure that was completed yesterday. She presents with epistaxis. At this point I do not think it would be beneficial and check INR because we would expect her INR to measure subtherapeutic since she had just re-initiated warfarin taking her 1st dose yesterday. Suspect that the bleeding was likely a combination of the Lovenox and warfarin. She is hemodynamically stable. No symptoms of dizziness or lightheadedness or orthostasis. At this point I do not think she needs hemoglobin measurement or admission for hemoglobin monitoring. Bleeding was primarily from her left nostril. Initial concern was whether not this was an anterior or posterior bleed. After the above interventions we will to get control of the bleeding and I was able to visualize a site of bleeding on the left nasal septum in the anterior nose. This was cauterized with silver nitrate. And after a long period of observation there has been no recurrent rebleeding. Patient and her are comfortable discharging home. Discussed management at home. Would continue on anticoagulants for now due to the risk of stroke with her mechanical aortic valve and AFib. Discussed humidifier, nasal saline, topical antibiotic ointment in her nostril, all to help prevent rebleeding. Discussed steps to take if she does have recurrent bleeding and potential need for return to the ER. She is in agreement. Discharge Plan Discharge Clinical Impression: Epistaxis Instructions: Nosebleed (ED) Additional Instructions: As we discussed, to help prevent your nose from rebleeding, you can get a humidifier to keep your air in your bedroom at home a little bit more humid. You can use nasal saline spray or Vaseline or antibiotic ointment in her nose to help moisturize and help the mucosal surface inside your nostril heal more quickly. For now it is best for you to continue on your Lovenox and warfarin If you do have another episode of nose bleeding, applied direct pressure with your fingers are within nasal clamp for 10 minutes. If that is not successful in stopping the bleeding, please come back to the ER to be rechecked Prescriptions: No Action warfarin 5 mg tablet 5 mg PO 5XW Patient Comments: 2.5mg PO 2xW glipizide 5 mg tablet extended release 24hr PO Patient Comments: TAKE 1 TABLET (5 MG) BY MOUTH ONCE DAILY BEFORE A MEAL. metformin 500 mg tablet extended release 24 hr PO Patient Comments: TAKE 2 TABLETS BY MOUTH IN THE MORNING AND 2 TABS IN THE EVENING WITH MEALS. lisinopril 5 mg tablet 5 mg PO QDAY atorvastatin 10 mg tablet 10 mg PO QHS (DME) OneTouch Ultra Test Strip See Rx Instructions .ROUTE .MEDSUPPLY Qty: 10 Patient Comments: TEST 1 TIME/DAY Rx Instructions: As directed albuterol sulfate 90 mcg/actuation HFA aerosol inhaler inhalation Citracal Plus Bone Density 300-200-13.5 mg-unit-mg tablet 1 tab PO QDAY metoprolol succinate 25 mg tablet extended release 24 hr PO Follow Up/Referrals: Siddharth Marquez MD [Primary Care Provider] - Stand Alone Forms: [employer] Info Instructions
[2024-03-24 11:01] VITALS: BP 117/82; PULSE 107; RESP 20; TEMP 36.3; O2SAT 97; BMI 23.8
[2024-03-24] MEDS: LIDOCAINE 1%-EPI 1:100,000 20 ML INFILTRATI (11:19)
[2024-03-24] MEDS: OXYMETAZOLINE 0.05% NASAL SPRAY 1 SPRAY NOSTRIL-B (11:19)
[2024-03-24] MEDS: TRANEXAMIC ACID 100 MG/ML INJ 1000 MG TOPICAL (11:19)
[2024-03-24] MEDS: SILVER NITRATE APPLICATOR 1 EACH STICK..EA. TOPICAL (11:20)
== END 2024-03-24 12:44 | disposition home or self-care (01) ==
PROVIDERS: Emergency Provider Emergency Medicine; PCP Family Medicine
DX: R04.0 Epistaxis (principal)
CPT/HCPCS: 30901; 99282; 99283; A9270

== ENCOUNTER 2024-06-21 17:37 | Emergency (ER) | payer MEDICARE, BC, SELFPAY ==
[2024-06-21] VITALS (11 sets, daily range): BP systolic 97–111; BP diastolic 50–78; PULSE 73–94; RESP 18; TEMP 36.7; O2SAT 96–99; BMI 23.8
--- OUTSIDE RECORDS SUMMARY | 2024-06-21 17:41 | XMS_ITS | Clinical Summary ---
Author Organization [facility] Address [place], [place] [address] Care Team Providers Care Oracle Sql Developer Name Role Phone Stacy Urias MD Primary Care Provider Allergies No known active allergies Medications Lancing Device with Lancets (ONE TOUCH DELICA) kitIndications: Type II or unspecified type diabetes mellitus without mention of complication, not stated as uncontrolled As directed. Dispense item covered by pt ins. 250.00 NIDDM type II - Test 1 time/day 1 Kit 5 03/03/20 14 Active fluticasone (50 mcg per actuation) nasal solution (FLONASE)Indica tions:Nasal congestion Inhale 1 [place] into both nostrils once daily. 2 Bottle 2 04/24/20 18 Active amoxicillin (AMOXIL) 500 mg capsule TAKE 4 CAPSULES BY MOUTH 1 HOUR BEFORE DENTAL APPT. 1 10/30/19 19 Active blood sugar diagnostic (OneTouch Ultra Test) stripIndication s:Type 2 diabetes mellitus with diabetic neuropathy, without long-term current use of insulin (HC) TEST 1 TIME/DAY 100 Each 3 12/22/19 24 Active empagliflozin (JARDIANCE) 25 mg tabletIndicatio ns:Type 2 diabetes mellitus with diabetic neuropathy, without long-term current use of insulin (HC) Take 1 Tablet (25 mg) by mouth once daily. 30 Tablet 11 01/01/20 24 Active lisinopriL (PRINIVIL; ZESTRIL) 20 mg tabletIndicatio ns:Essential hypertension TAKE 1 TABLET BY MOUTH EVERY DAY 90 Tablet 1 02/28/20 24 Active calcium carbonate-tomas calciferol, 600mg-200 units, (CALTRATE-600 + VIT D) tablet Take 1 Tablet by mouth once daily with a meal. Active atorvastatin (LIPITOR) 10 mg tablet Take 10 mg by mouth once daily. Active warfarin (COUMADIN) 5 mg tabletIndicatio ns:H/O aortic valve replacement,Ant icoagulation monitoring, INR range 2.5-3.5 Take by mouth 5 mg (5 mg x 1) every Mon, Mon, Mon; 2.5 mg (5 mg x 0.5) all other days in the evening OR as directed 65 Tablet 04/16/20 24 Active glipiZIDE extended-releas e (GLUCOTROL XL) 5 mg Extended-Releas e tabletIndicatio ns:Type 2 diabetes mellitus with diabetic polyneuropathy, without long-term current use of insulin (HC),Diabetic neuropathy with neurologic complication (HC) Take 1 Tablet (5 mg) by mouth once daily before a meal. 90 Tablet 1 04/28/20 24 Active metoprolol succinate (Toprol XL) 50 mg sustained-relea se tabletIndicatio ns:Essential hypertension,An eurysm of ascending aorta without rupture (HC),Paroxysmal atrial fibrillation (HC),H/O aortic valve replacement Take 3 Tablets (150 mg) by mouth once daily. 270 Tablet 3 05/13/20 24 Active metFORMIN (GLUCOPHAGE XR) 500 mg Extended-Releas e tabletIndicatio ns:Type 2 diabetes mellitus with diabetic polyneuropathy, without long-term current use of insulin (HC) TAKE 2 TABLETS (1,000 MG) BY MOUTH TWICE A DAY WITH MEALS 360 Tablet 05/29/19 25 Active cefuroxime axetil (CEFTIN) 500 mg tabletIndicatio ns:Community acquired pneumonia, unspecified laterality Take 1 Tablet (500 mg) by mouth two times daily for 10 days. 20 Tablet 06/11/19 25 025 Active furosemide (LASIX) 20 mg tabletIndicatio ns:H/O aortic valve replacement Take 1 Tablet (20 mg) by mouth once daily in the morning. 90 Tablet 3 06/19/19 25 Active nystatin 100,000 unit/gram creamIndication s:Vaginal itching,Vaginal burning,Dermati tis Apply topically to affected area(s) two times daily. 30 g 06/21/19 25 Active metFORMIN (GLUCOPHAGE XR) 500 mg Extended-Releas e tabletIndicatio ns:Type 2 diabetes mellitus with diabetic polyneuropathy, without long-term current use of insulin (HC) Take 2 Tablets (1,000 mg) by mouth two times daily with meals. 360 Tablet 3 06/08/19 24 025 Discontinued furosemide (LASIX) 20 mg tabletIndicatio ns:H/O aortic valve replacement Take 1 Tablet (20 mg) by mouth every morning. 90 Tablet 3 08/08/19 24 025 Discontinued(Re order (E-cancel not sent)) azithromycin (ZITHROMAX) 500 mg tabletIndicatio ns:Upper respiratory tract infection, unspecified type,Community acquired pneumonia, unspecified laterality Take 1 Tablet (500 mg) by mouth every 24 hours for 5 days. 5 Tablet 06/11/19 25 025 Active Problems Problem Noted Date Diagnosed Date Acute on chronic heart failu re with preserved ejection fraction 06/11/2024 Vision changes 03/29/2024 Chronic heart failure with preserved ejection fr action 03/22/2024 CKD (chronic kidney disease), stage II Nonrheumatic mitral valve regurgitation 10/30/19 24 Paroxysmal atrial fibrillation 07/18/2023 [place] of foot 10/18/2022 Personal history of fall 06/28/2022 Rotator cuff tear arthropathy of right shoulder 06/06/2022 Injury of right shoulder 06/06/2022 Ascending aortic aneurysm 10/12/2021 Overview (10/12/2021): CT 4.3cm 10/12/21. Repeat echocardiogram in 1 year. Warfarin anticoagulation 08/10/2021 Bilateral pseudophakia 04/22/2019 Diabetic nephropathy with proteinuria 06/27/2016 Hyperopia of both eyes with astigmatism and pres byopia 05/02/2016 Ocular rosacea 05/02/2016 Dermatochalasis of both upper eyelids 04/21/2015 Essential hypertension 11/14/2014 Rotator cuff tear, right 07/02/2014 Overview (07/02/2014): Jun 2014: rotator cuff tear and acute proximal biceps tendon rupture. referral to Orthopedics. Anticoagulation monitoring, INR range 2.5-3.5 Benign essential tremor 11/08/2013 Overview (11/08/2013): Saw Dr. Raul Easley 08/21/13. No tx at this time. H/O aortic valve replacement 03/20/2012 Colon polyp 01/24/2011 Overview (01/24/2011): Colonoscopy 01/2011 polyp repeat in 5 years Gastric ulcer 01/24/2011 Overview (01/24/2011): EGD 01/2011 ulcer, reactive gastropathy Osteopenia 04/16/2007 Overview (04/16/2007): bone density 2006, needs repeat in 2 yrs Osteoarthrosis, unspecified whether generalized or localized, unspecified site 12/14/2005 Major depressive disorder, r ecurrent episode, in full remission 03/26/2004 HYPERCHOLESTEROLEMIA, PURE 08/14/2000 Multinodular goiter 07/28/2000 Type 2 diabetes mellitus wit h diabetic polyneuropathy, without long-term current use of insulin 09/27/1999 Overview (03/31/2015): Follow up every 4 months for DIABETES MELLITUS visits Has peripheral neuropathy- mild 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 Resolved Problems Problem Noted Date Diagnosed Date Resolved Date Upper respiratory tract infection 01/13/2017 10/30/2023 Encounters Date Type Department Care Team Description 06/21/2024 9:35 AM SPECIAL DELIVERY WORKER [place] [facility] [address] [place], [place] [phone] Anna Lockhart PA Vaginal Problem (x1-2 weeks) 06/21/2024 Telephone [facility] [address] [place], [place] [phone] Stacy Urias MD Anticoagulation (INR >5) 06/21/2024 Nurse Triage [facility] [address] [place], [place] [phone] Stacy Urias MD Head Injury 06/21/2024 Anticoagulation (warfarin) [facility] [address] [place] [address] Clinic, [facility] Anticoagulation 06/21/2024 Travel 06/19/2024 Telephone [facility] [address] [place] [phone] Glenn Lazaro MD Medication Management (Lasix) 06/14/2024 10:00 AM SPECIAL DELIVERY WORKER Orders Only [facility] [address] [place] [address] Lab, Farm Lab 06/14/2024 Anticoagulation (warfarin) [facility] [address] [place] [address] [facility], [facility] Anticoagulation 06/14/2024 Travel 06/11/2024 10:50 AM SPECIAL DELIVERY WORKER Office Visit [facility] [address] [place] [address] Stacy Urias MD Cough (X one month but got much worse this weekend. Patient is audially wheezing and cannot stop coughing) 06/11/2024 10:25 AM SPECIAL DELIVERY WORKER Ancillary Procedure [facility] [address] [place] [address] 06/11/2024 Telephone [facility] [address] [place] [address] Stacy Urias MD Results 06/11/2024 Anticoagulation (warfarin) [facility] [address] [place] [address] Clinic[facility] Anticoagulation (Chart update: BPA) 06/11/2024 Telephone [facility] [address] [place] [address] Stacy Urias MD Anticoagulation (BPA Azithromycin ) 06/11/2024 Travel 06/07/2024 Nurse Triage [facility] [address] [place] [address] Stacy rUias MD Cough 05/27/2024 Refill [facility] [address] [place] [address] Stacy Urias MD Refill Request (Metformin) 05/22/2024 10:00 AM SPECIAL DELIVERY WORKER Orders Only [facility] [address] [place] [address] Lab, Farm Lab 05/22/2024 Anticoagulation (warfarin) [facility] [address] [place] [address] Clinic, [facility] Inr Anticoagulation 05/22/2024 Travel 05/13/2024 Telephone [facility] [address] [phone] Glenn Lazaro MD Medication Management (Metoprolol) 05/03/2024 3:30 PM SPECIAL DELIVERY WORKER Office Visit [facility] [address] [phone] Glenn Lazaro MD CV Valve Est (VALVE EST: 30DAY S/P MITRACLIP, LABS ECHO PRIOR, NEEDS EKG, KCCQ12, LETTER GIVEN, HJK//PCP: Stacy Urias MD/) 05/03/2024 3:00 PM SPECIAL DELIVERY WORKER Orders Only [facility] [address] [place] [phone] Lab 05/02/2024 2:00 PM SPECIAL DELIVERY WORKER Office Visit [facility] [address] [place] [address] Hay Ellsworth, OD Eye Exam (DM CEE) 05/02/2024 Travel 05/02/2024 Orders Only [facility] [address] [phone] VerónicaGlenn Maldonado MD <No scans attached> 04/28/2024 Refill [facility] [address] [place] [place] [address] Stacy Urias MD Refill Request (Glipizide Extended-release) 04/24/2024 Refill [facility] [address] [place] [address] Stacy Urias MD Refill Request (Glipizide/) 04/17/2024 2:00 PM SPECIAL DELIVERY WORKER Office Visit [facility] [address] [place] [address] Mitch Garcia, AuD Hearing Problem 04/17/2024 Travel 04/16/2024 1:20 PM SPECIAL DELIVERY WORKER Office Visit [facility] [address] [place] [address] Stacy Urias MD Diabetes (follow up) 04/16/2024 Telephone [facility] [address] [place] [address] Stacy Urias MD Results 04/16/2024 Anticoagulation (warfarin) [facility] [address] [place] [address] Clinic, [facility] Inr Anticoagulation 04/15/2024 2:00 PM SPECIAL DELIVERY WORKER Orders Only [facility] [address] [place] [address] Lab, [facility] 04/15/2024 11:00 AM SPECIAL DELIVERY WORKER Ancillary Procedure [facility] [address] [place] [phone] 04/15/2024 Travel 04/14/2024 Refill [facility] [address] [place] [address] Stacy Urias MD Refill Request (Warfarin) 04/05/2024 2:00 PM SPECIAL DELIVERY WORKER Orders Only [facility] [address] [place] [address] Lab, [facility] 04/05/2024 Telephone [facility] [address] [place] [address] Stacy Urias MD Anticoagulation (Dosing to PCP) 04/05/2024 Anticoagulation (warfarin) [facility] [address] [place] [address] Clinic, [facility] Anticoagulation 04/05/2024 Travel 03/29/2024 10:50 AM SPECIAL DELIVERY WORKER Office Visit [facility] [address] [place] [address] Stacy Urias MD [facility] F/U (03/22/24 patient was seen due to her mitral valve regurgitation, patient has had nose bleeds, back pain, eye sight is not the same as usual ) 03/29/2024 10:15 AM SPECIAL DELIVERY WORKER Orders Only [facility] [address] [place] [address] Lab, [facility] Lab 03/29/2024 Anticoagulation (warfarin) [facility] [address] [place] [address] [facility], [facility] Inr Anticoagulation (Provider OV) 03/26/2024 1:00 PM SPECIAL DELIVERY WORKER Orders Only [facility] [address] [place] [address] Lab, [facility] Lab 03/26/2024 Telephone [facility] [address] [place] [address] Stacy Urias MD Anticoagulation (Dosing review) 03/26/2024 Anticoagulation (warfarin) [facility] [address] [place] [address] Clinic, [facility] Anticoagulation 03/26/2024 Travel 03/25/2024 Patient Outreach [facility] [address] [place] [address] Blanca Chinchilla, GUSTABO Primary RN Care Management; Hospital F/U (S/P mitral valve clip implantation, DOD: 03/23/24, LACE+: 55) 03/24/2024 Telephone [facility] [address] [facility] [address] [place] [address] Leobardo Be MD, PhD Concerns 03/22/2024 2:08 PM SPECIAL DELIVERY WORKER Anesthesia Event [facility] [address] [place], [place] [phone] Wendi Reed MD [place], Lorrie Toledo, PHYSIOTHERAPY ASSISTANT 03/22/2024 9:34 AM SPECIAL DELIVERY WORKER - 03/23/2024 11:30 AM SPECIAL DELIVERY WORKER Hospital Encounter [facility] [address] [place] [address] Leobardo Be MD, PhD Nick Olsen MD [facility] S/P mitral valve clip implantation (Primary Dx); Mitral valve insufficiency, unspecified etiology; H/O aortic valve replacement Discharge Disposition: Home Self Care 03/22/2024 Travel from Last 3 Months Immunizations Name Administration Dates Next Due COVID-19 vaccine ([employer] NTech 30mcg/0.3mL) PFJULIA 08/06/2020,07/16/2020 HepA-HepB (Twinrix) 10/11/2013 Hepatitis B (Adult) 11/08/2013 INFLUENZA, IIV3 PF (AGE >= 6 MO) 02/16/2011 Influenza RIV4 (Age 18+ Year s) PRESERV FREE 02/08/2019 Influenza, High-dose Inactivated 024,02/01/2018,02/01/2017,2015,03/16/2015,02/26/2014,02/27/2012 Influenza, High-dose Quadriv alent Inactivated 03/24/2023,03/09/2022,04/02/2021,2019 Influenza, IIV3 (Age >=3 years) 02/29/20 13,02/16/2011,03/16/2010,2006,03/10/2005,03/01/2004,03/27/2003 Influenza, Inactivated IIV3 (Age 65+ Years) Preserv Free 01/27/2020,02/22/2019,01/13/2018,2016 Pneumococcal Poly,23-Valent (Pneumovax) 03/27/2003,11/11/2002 Pneumococcal conj 13-Valent (Prevnar 13) 03/31/2015 Td (Age >=7 Years) 11/11/2002 Tdap 05/16/2022,03/26/2013 Zoster (Zostavax-ZVL, live) 03/16/2010 Family History Medical History Relation Name Comments Stroke Brother 1 Stroke Brother 2 Diabetes Father Heart Disease Father Other Maternal Grandfather blind Heart Disease Mother Genetic Other lazy eye-son an d niece Cancer-breast No Family History Cancer-ovarian No Family History Relation Name Status Comments Brother 1 Brother 2 Father Maternal Grandfather Maternal Grandmother Mother Other Paternal Grandfather Paternal Grandmother Social History Tobacco Use Types Packs/Day Years Used Date Smoking Tobacco: Never Passive Smoke Exposure: Never Smokeless Tobacco: Never Tobacco Cessation:Counseling Given: Yes Alcohol Use Standard Drinks/Week Comments Not Currently 0 (1 standard drink = 0.6 oz pure alcohol) occasional, usually just for special family occasions PHQ-2 Answer Date Recorded PHQ-2 TOTAL SCORE 1 10/30/2023 Social Connections Answer Date Recorded Do you often feel lonely or isolated from those around you? 0 03/22/2024 Financial Resource Strain Answer Date R ecorded Difficulty of Paying Living Expenses 3 10/30/2023 Difficulty of Paying Living Expenses Not on file 10/30/2023 Food Insecurity Answer Date Recorded Do you worry your food will run out before you are able to buy more? 1 03/22/2024 Transportation Needs Answer Date Record ed Does lack of transportation keep you from medica l appointments? 1 03/22/2024 Does lack of transportation keep you from work, meetings or getting things that you need? 1 03/22/2024 Housing Stability Answer Date Recorded What is your housing situation today? 1 03/22/2024 Interpersonal Safety Answer Date Record ed Are you being hit, kicked, p ushed or yelled at (see row info)? No 03/22/2024 Interpersonal Safety Abuse 12 - 18 Not on file 03/22/2024 Interpersonal Safety Ambulatory Vulnerability No t on file 03/22/2024 Utilities Answer Date Recorded Do you have trouble paying f or utilities (for example, heat, electricity, water, phone)? 1 03/22/2024 Comments No Sex and Gender Information Value Date Recorded Sex Assigned at Not on file Legal Sex Female 5:21 AM SPECIAL DELIVERY WORKER Gender Identity Not on file Sexual Orientation Not on file Obstetrics History Para Term AB IAB SAB Ectopic Multiple Livin g Live Births 12 12 12 0 0 0 0 0 0 12 Date Outcome GA Total Labor Labor/2nd/3rd Weight Sex Type Anes PTL Renay A1 A5 Name Clin Term Term Term Term Term Term Term Term Term Term Term Term Last Filed Vital Signs Vital Sign Reading Time Taken Comments Blood Pressure 100/62 06/21/2024 9:39 AM SPECIAL DELIVERY WORKER Pulse 90 06/21/2024 9:39 AM SPECIAL DELIVERY WORKER Temperature 36.4 C (97.6 F) 06/21/2024 9:39 AM SPECIAL DELIVERY WORKER Respiratory Rate 18 03/23/2024 5:19 AM SPECIAL DELIVERY WORKER Oxygen Saturation 96% 06/11/2024 10:14 AM SPECIAL DELIVERY WORKER Inhaled Oxygen Concentration - - Weight 53.7 kg (118 lb 4.8 oz) 06/21/2024 9:39 A M SPECIAL DELIVERY WORKER Height 149.9 cm (4' 11) 05/03/2024 2:58 PM SPECIAL DELIVERY WORKER Body Mass Index 23.89 05/03/2024 2:58 PM SPECIAL DELIVERY WORKER Plan of Treatment Health Maintenance Due Date Last Done Comments Zoster (shingles) series for age 50+ (2 of 3) 05/11/2010 03/16/2010 RSV vaccine for adults or (1 - 1-dose 75+ series) 02/29/2012 Depression screening for age 12+ 10/29/2024 10/30/2023, 08/08/2022, 08/05/2022, Additional history exists Medicare Wellness for age 65+ 10/30/2024, 08/02/2022, 10/20/2020, Additional history exists BMI (ht and wt on same day) for age 18+ 05/03/2025 05/03/2024, 03/29/2024, 03/15/2024, Additional history exists Tetanus booster 05/16/2032 05/16/2022, 03/15, 11/11/2002 DEXA/DXA scan for age 65+ Completed 05/26/2009, Pneumococcal series for age 50+ Completed 03/31/2015, 03/27/2003, 11/11/2002 Tdap Completed 05/16/2022, 03/26/2013 COVID-19 vaccine series Completed 01/28/20 24, 03/24/2023, 03/09/2022, Additional history exists Influenza for age 65+ Completed 01/28/2024 , 03/24/2023, 03/09/2022, Additional history exists Procedures Procedure Name Priority Date/Time Associated Diagnosis Comments PROTIME-INR Routine 06/21/2024 10:26 AM SPECIAL DELIVERY WORKER H/O aortic valve replacement Anticoagulation monitoring, INR range 2.5-3.5 URINALYSIS MICROSCOPIC Routine 06/21/2024 10:26 AM SPECIAL DELIVERY WORKER Dysuria Urinary frequency URINALYSIS MACROSCOPIC - [facility] ONLY POC DIP (QUEST) Routine 06/21/2024 10:07 AM SPECIAL DELIVERY WORKER Dysuria Urinary frequency INR,POCT Routine 06/14/2024 10:01 AM SPECIAL DELIVERY WORKER H/O aortic valve replacement Anticoagulation monitoring, INR range 2.5-3.5 XR CHEST 2 VIEWS PA AND LATERAL Routine 06/11/2024 10:34 AM SPECIAL DELIVERY WORKER Upper respiratory tract infection, unspecified type Acute cough INR,POCT Routine 05/22/2024 10:09 AM SPECIAL DELIVERY WORKER H/O aortic valve replacement Anticoagulation monitoring, INR range 2.5-3.5 CBC W PLT NO DIFF Routine 05/03/2024 2:5 4 PM SPECIAL DELIVERY WORKER S/P mitral valve clip implantation Nonrheumatic mitral valve disorder, unspecified BASIC METABOLIC PANEL Routine 05/03/2024 2:54 PM SPECIAL DELIVERY WORKER S/P mitral valve clip implantation EKG 12 LEAD Routine 05/03/2024 2:52 PM SPECIAL DELIVERY WORKER Severe mitral regurgitation HEMOGLOBIN A1C MONITORING (POCT) Routine 04/15/2024 4:44 PM SPECIAL DELIVERY WORKER Type 2 diabetes mellitus with diabetic polyneuropathy, without long-term current use of insulin (HC) RED CELL MORPHOLOGY Routine 04/15/2024 1 :57 PM SPECIAL DELIVERY WORKER Severe mitral regurgitation PROTIME-INR Routine 04/15/2024 1:57 PM SPECIAL DELIVERY WORKER H/O aortic valve replacement Anticoagulation monitoring, INR range 2.5-3.5 CBC W PLT NO DIFF Routine 04/15/2024 1:5 7 PM SPECIAL DELIVERY WORKER Severe mitral regurgitation BASIC METABOLIC PANEL Routine 04/15/2024 1:57 PM SPECIAL DELIVERY WORKER Severe mitral regurgitation ECHO TTE LIMITED W CONTRAST Routine 04/15/2024 12:03 PM SPECIAL DELIVERY WORKER Severe mitral regurgitation INR,POCT Routine 04/05/2024 1:50 PM SPECIAL DELIVERY WORKER H/O aortic valve replacement Anticoagulation monitoring, INR range 2.5-3.5 PROTIME-INR Routine 03/29/2024 11:30 AM SPECIAL DELIVERY WORKER H/O aortic valve replacement Anticoagulation monitoring, INR range 2.5-3.5 PLATELET COUNT STAT 03/26/2024 12:55 PM SPECIAL DELIVERY WORKER H/O aortic valve replacement Anticoagulation monitoring, INR range 2.5-3.5 PROTIME-INR STAT 03/26/2024 12:55 PM SPECIAL DELIVERY WORKER H/O aortic valve replacement Anticoagulation monitoring, INR range 2.5-3.5 ECHO TTE LIMITED W CONTRAST W COLOR W DOPPLER Routine 03/23/2024 10:58 AM SPECIAL DELIVERY WORKER EKG 12 LEAD Early AM 03/23/2024 6:03 AM SPECIAL DELIVERY WORKER APTT Timed 03/23/2024 5:01 AM SPECIAL DELIVERY WORKER PROTIME-INR Early AM 03/23/2024 5:01 AM SPECIAL DELIVERY WORKER BASIC METABOLIC PANEL Early AM 03/23/2024 5:01 AM SPECIAL DELIVERY WORKER CBC W PLT NO DIFF Early AM 03/23/2024 5:0 1 AM SPECIAL DELIVERY WORKER EKG 12 LEAD RIVKA 03/22/2024 5:33 PM SPECIAL DELIVERY WORKER CREATININE RIVKA 03/22/2024 4:11 PM SPECIAL DELIVERY WORKER BUN RIVKA 03/22/2024 4:11 PM SPECIAL DELIVERY WORKER HEMATOCRIT RIVKA 03/22/2024 4:11 PM SPECIAL DELIVERY WORKER HEMOGLOBIN RIVKA 03/22/2024 4:11 PM SPECIAL DELIVERY WORKER PLATELET COUNT RIVKA 03/22/2024 4:11 PM SPECIAL DELIVERY WORKER APTT RIVKA 03/22/2024 4:11 PM SPECIAL DELIVERY WORKER PROTIME-INR RIVKA 03/22/2024 4:11 PM SPECIAL DELIVERY WORKER ECHO LIGIA TRANSCATHETER INTRAOP PROCEDURE Routine 03/22/2024 3:43 PM SPECIAL DELIVERY WORKER Mitral valve insufficiency, unspecified etiology HCHG ACTIVATED CLOTTING TM CV Timed 03/22/2024 3:23 PM SPECIAL DELIVERY WORKER HCHG ACTIVATED CLOTTING TM CV Timed 03/22/2024 2:58 PM SPECIAL DELIVERY WORKER ENDOTRACHEAL TUBE Routine 03/22/2024 2:5 2 PM SPECIAL DELIVERY WORKER ENDOTRACHEAL TUBE Routine 03/22/2024 2:5 2 PM SPECIAL DELIVERY WORKER CVL OTHER PROCEDURE Routine 03/22/2024 2 :43 PM SPECIAL DELIVERY WORKER RBC W/O TYPE & SCREEN STAT 03/22/2024 1:43 PM SPECIAL DELIVERY WORKER RED BLOOD CELLS EA UNIT STAT 03/22/2024 1:40 PM SPECIAL DELIVERY WORKER RED BLOOD CELLS EA UNIT STAT 03/22/2024 1:40 PM SPECIAL DELIVERY WORKER PROTIME-INR Today 03/22/2024 11:57 AM SPECIAL DELIVERY WORKER TYPE & SCREEN Preop 03/22/2024 11:54 AM SPECIAL DELIVERY WORKER GLUCOSE, FASTING Preop 03/22/2024 11:5 4 AM SPECIAL DELIVERY WORKER SCAN-CARDIAC STRIP 03/22/2024 12 :00 AM SPECIAL DELIVERY WORKER XR DXA BONE DENSITY 2 SITES AXIAL Routine 05/26/2009 2:09 PM SPECIAL DELIVERY WORKER Osteopenia from Last 3 Months or Most Recently Relevant to Health Maintenance Results * URINALYSIS MICROSCOPIC (06/21/2024 10:26 AM SPECIAL DELIVERY WORKER) RBC 0-2 0-2, None Seen /HPF 06/21/2024 3:37 PM SPECIAL DELIVERY WORKER [facility] WBC 0-2 0-2, 3-5, None Seen /HPF 06/21/2024 3:37 PM SPECIAL DELIVERY WORKER [facility] BACTERIA None Seen None Seen, Rare, Few Bacteria/ HPF 06/21/2024 3:37 PM SPECIAL DELIVERY WORKER [facility] EPITHELIAL CELLS None Seen None Seen, Few Epi/HPF 06/21/2024 3:37 PM SPECIAL DELIVERY WORKER [facility] HYALINE CASTS 3-5 0-2, 3-5 /LPF 06/21/2024 3:37 PM SPECIAL DELIVERY WORKER [facility] Urine URINE SPECIMEN / Unknown Non-Blood / Unknown 06/21/2024 10:26 AM SPECIAL DELIVERY WORKER 06/21/2024 10:26 AM SPECIAL DELIVERY WORKER Anna CELESTIN URINE Final Result [facility] [address] [place] [id number], [place] * (ABNORMAL) PROTIME-INR [37146.0] - Standing Order (06/21/2024 10:26 AM SPECIAL DELIVERY WORKER) Only the most recent of7 resultswithin the time period is included. INR >16.0(HH) <1.3 06/21/2024 4:38 PM SPECIAL DELIVERY WORKER [facility] PROTIME >160.0(H) 10.6 - 12.4 sec 06/21/2024 4:38 PM SPECIAL DELIVERY WORKER [facility] Blood BLOOD SPECIMEN / Unknown [facility] Collect / Unknown 06/21/2024 10:26 AM SPECIAL DELIVERY WORKER 06/21/2024 10:26 AM SPECIAL DELIVERY WORKER Narrative [facility] - 06/21/2024 4:38 PM SPECIAL DELIVERY WORKER Therapeutic Range 2.0-3.0 for most anticoagulated patients 2.5-3.5 or 4.0 for high risk patients The INR is only used for patients on stable oral anticoagulant therapy. It makes no significant contribution to the diagnosis or treatment of patients whose Protime is prolonged for other reasons. INR results are increased when heparin levels exceed 1.0 U/mL, which corresponds to an aPTT >125 seconds if the patient is on UFH. us Stacy Urias MD HEMATOLOGY Final Resul t [facility] [address] [place] [address], [place] * (ABNORMAL) POCT Urinalysis Dipstick Only (06/21/2024 10:07 AM SPECIAL DELIVERY WORKER) PH 5.5 5.0 - 8.0 [facility] SPECIFIC GRAVITY 1.010 1.001 - 1.035 [facility] GLUCOSE 2+(A) NEGATIVE [facility] BILIRUBIN NEGATIVE NEGATIVE [facility] KETONES NEGATIVE NEGATIVE [facility] OCCULT BLOOD 1+(A) NEGATIVE [facility] PROTEIN NEGATIVE NEGATIVE [facility] NITRITE NEGATIVE NEGATIVE [facility] LEUKOCYTE ESTERASE NEGATIVE NEGATIVE [facility] Urine URINE SPECIMEN / Unknown 06/21/2024 10:07 AM SPECIAL DELIVERY WORKER 06/21/2024 10:13 AM SPECIAL DELIVERY WORKER Anna CELESTIN URINE Final Result Performing Organization Address City/[facility]/ZIP Co de Phone Number [facility] [address] [address] [facility] [address], [facility] [address] [facility] [address] [place] [address] * (ABNORMAL) INR - POCT [[id number]] - Standing Order (06/14/2024 10:01 AM SPECIAL DELIVERY WORKER) Only the most recent of3 resultswithin the time period is included. INR 2.4(H) ratio [facility] Comment: INRs >2.9 may be falsely elevated in patients receiving either unfractionated Heparin or Low Molecular Weight Heparin. Follow up testing in a hospital laboratory may be helpful if clinically indicated. INR results of > or = 5.0 should be verified using the standard venipuncture procedure. Reference Range 0.9-1.1 Moderate-intensity Warfarin Therapy 2.0-3.0 Higher-intensity Warfarin Therapy 3.0-4.0 PROTHROMBIN TIMEP 28.4(H) 10.5 - 13.1 sec [facility] Comment: Point of care fingerstick Prothrombin Time/INR results may vary from venous Prothrombin Time/INR methodologies. Any results exhibiting inconsistency with the patient's clinical status should be repeated using a venous Prothrombin Time/INR method. Blood BLOOD SPECIMEN / Unknown 06/14/2024 10:01 AM SPECIAL DELIVERY WORKER 06/14/2024 10:02 AM SPECIAL DELIVERY WORKER Stacy Urias MD LABORATORY Final Resul t [facility] [address] [facility] [place] [address], [facility] [address] [place] [address] * XR CHEST 2 VIEWS PA AND LATERAL (06/11/2024 10:34 AM SPECIAL DELIVERY WORKER) Anatomical Region Laterality Modality CHEST, THORAX, Lung, HEART Compu zainab Radiography 06/11/2024 1:19 PM SPECIAL DELIVERY WORKER Impressions 06/11/2024 1:19 PM SPECIAL DELIVERY WORKER Small pleural effusions. No infiltrate. Dictated by Raul Almanza MD @ 06/11/2024 1:19:12 PM (Electronically Signed) Narrative 06/11/2024 1:19 PM SPECIAL DELIVERY WORKER For Patients: As a result of the Cures Act, medical imaging exams and procedure reports are released immediately into your electronic medical record. You may view this report before your referring provider. If you have questions, please contact your health care provider. INDICATION: Upper respiratory tract infection, unspecified type TECHNIQUE: Chest 2 views COMPARISON: CT 12/25/2023, x-ray 08/09/2023 FINDINGS: Chronic deformity of the right ribcage and left clavicle. Degenerative changes at both shoulders. Stable density associated with the right proximal humerus. Stable mediastinal contours. Mild areas of scarring. Small pleural effusions. No consolidative infiltrate. Procedure Note Raul Almanza MD - 06/11/2024 For Patients: As a result of the Cures Act, medical imagingexams and procedure reports are released immediately into your electronicmedical record. You may view this report before your referring provider.If you have questions, please contact your health care provider. INDICATION: Upper respiratory tract infection, unspecified type TECHNIQUE: Chest 2 views COMPARISON: CT 12/25/2023, x-ray 08/09/2023 FINDINGS: Chronic deformity of the right ribcage and left clavicle. Degenerativechanges at both shoulders. Stable density associated with the rightproximal humerus. Stable mediastinal contours. Mild areas of scarring.Small pleural effusions. No consolidative infiltrate. IMPRESSION: Small pleural effusions. No infiltrate. Dictated by Raul Almanza MD @ 06/11/2024 1:19:12 PM (Electronically Signed) us Stacy Urias MD GENERAL IMAGING Final Resul t * (ABNORMAL) CBC W PLT NO DIFF (05/03/2024 2:54 PM SPECIAL DELIVERY WORKER) Only the most recent of3 resultswithin the time period is included. WHITE BLOOD COUNT 6.5 4.5 - 11.0 thou/cu mm 05/03/2024 3:09 PM [facility] RED BLOOD COUNT 4.35 4.00 - 5.20 mil/cu mm 05/03/2024 3:09 PM [facility] HEMOGLOBIN 10.6(L) 12.0 - 16.0 g/dL 05/03/2024 3:09 PM [facility] HEMATOCRIT 35.4 33.0 - 51.0 % 05/03/2024 3:09 PM [facility] MCV 81 80 - 100 fL 05/03/2024 3:09 PM [facility] MCH 24.4(L) 26.0 - 34.0 pg 05/03/2024 3:09 PM [facility] MCHC 29.9(L) 32.0 - 36.0 g/dL 05/03/2024 3:09 PM [facility] RDW 15.6(H) 11.5 - 15.5 % 05/03/2024 3:09 PM [facility] PLATELET COUNT 306 140 - 440 thou/cu mm 05/03/2024 3:09 PM [facility] MPV 10.3 6.5 - 11.0 fL 05/03/2024 3:09 PM [facility] NRBC 0.0 % 05/03/2024 3:09 PM [facility] ABS NRBC 0.0 thou /cu mm 05/03/2024 3:09 PM [facility] Blood BLOOD SPECIMEN / Unknown Venipuncture / Unknown 05/03/2024 2:54 PM SPECIAL DELIVERY WORKER 05/03/2024 3:03 PM SPECIAL DELIVERY WORKER us Glenn Lazaro MD HEMATOLOGY Final Result [facility] [address] [place] [address], [place] * (ABNORMAL) BASIC METABOLIC PANEL (05/03/2024 2:54 PM SPECIAL DELIVERY WORKER) Only the most recent of3 resultswithin the time period is included. SODIUM 137 136 - 145 mmol/L 05/03/2024 3:32 PM SPECIAL DELIVERY WORKER [facility] POTASSIUM 5.0 3.5 - 5.1 mmol/L 05/03/2024 3:32 PM SPECIAL DELIVERY WORKER [facility] CHLORIDE 101 98 - 107 mmol/L 05/03/2024 3:32 PM SPECIAL DELIVERY WORKER [facility] CO2,TOTAL 26 22 - 29 mmol/L 05/03/2024 3:32 PM SPECIAL DELIVERY WORKER [facility] ANION GAP 10 5 - 18 05/03/2024 3:32 PM SPECIAL DELIVERY WORKER [facility] GLUCOSE 161(H) 70 - 99 mg/dL 05/03/2024 3:32 PM SPECIAL DELIVERY WORKER [facility] CALCIUM 9.3 8.8 - 10.4 mg/dL 05/03/2024 3:32 PM SPECIAL DELIVERY WORKER [facility] Comment: Reference ranges for this test were updated on 03/19/2024 to reflect our healthy population more accurately. Reference range changes are not retroactively applied to results, but previous results using the same methodology can be interpreted in the context of the new reference range. BUN 29(H) 8 - 23 mg/dL 05/03/2024 3:32 PM SPECIAL DELIVERY WORKER [facility] CREATININE 0.89 0.50 - 0.90 mg/dL 05/03/2024 3:32 PM SPECIAL DELIVERY WORKER [facility] BUN/CREAT RATIO 33(H) 10 - 20 4 3:32 PM SPECIAL DELIVERY WORKER [facility] eGFR 63(L) >90 mL/min/1. 73m2 05/03/2024 3:32 PM SPECIAL DELIVERY WORKER [facility] Comment:As of 2021, eG FR is calculated by the CKD-EPI creatinine equation without race adjustment. eGFR can be influenced by muscle mass, exercise, and diet. The reported eGFR is an estimation only and is only applicable if the renal function is stable. Blood BLOOD SPECIMEN / Unknown Venipuncture / Unknown 05/03/2024 2:54 PM SPECIAL DELIVERY WORKER 05/03/2024 3:03 PM SPECIAL DELIVERY WORKER Glenn Lazaro MD CHEMISTRY Final Result [facility] [address] [place] [id number], [place] * EKG 12 LEAD (05/03/2024 2:52 PM SPECIAL DELIVERY WORKER) Only the most recent of3 resultswithin the time period is included. Pathologist [facility] Interpretation Atrial fibrillation with rapid ventricular response with a competing junctional pacemaker Right superior axis deviation Non-specific intra-ventricul ar conduction block Cannot rule out Anterior infarct , age undetermined T wave abnormality, consider lateral ischemia Abnormal ECG Ventricular Rate 104 BPM Atrial Rate BPM P-R Interval ms QRS Duration 140 ms QT 396 ms QTc 520 ms P Vulcan degrees R Vulcan 266 degrees T Vulcan 96 degrees 05/03/2024 2:52 PM SPECIAL DELIVERY WORKER 05/05/2024 1:41 PM SPECIAL DELIVERY WORKER Yao Macedo MEDICAL TERRITORY MANAGER EKG ORD Final Resul t * (ABNORMAL) POCT Hemoglobin A1C Monitoring (04/15/2024 4:44 PM SPECIAL DELIVERY WORKER) [facility] POC HEMOGLOBIN A1C 6.9(H) <6.0 % OF TOTAL HGB [facility] Comment: Any point of care results exhibiting inconsistency with the patient's clinical status should be repeated using a different testing method. Blood BLOOD SPECIMEN / Unknown 04/15/2024 4:44 PM SPECIAL DELIVERY WORKER 04/15/2024 4:44 PM SPECIAL DELIVERY WORKER us Stacy Urias MD CHEMISTRY Final Resul t [facility] [address] [place] [address], [place] [phone] [facility] [address] [place] [address] * (ABNORMAL) RED CELL MORPHOLOGY (04/15/2024 1:57 PM SPECIAL DELIVERY WORKER) ECHINOCYTES Few 04/15/2024 11:44 PM SPECIAL DELIVERY WORKER [facility] ELLIPTOCYTES Moderate 04/15/2024 11:44 PM SPECIAL DELIVERY WORKER [facility] POLYCHROMASIA Slight 04/15/2024 11:44 PM SPECIAL DELIVERY WORKER [facility] RBC COMMENT Present(A) RBC morphology appears normal, RBC morphology within normal limits for newborns. 04/15/2024 11:44 PM SPECIAL DELIVERY WORKER [facility] Blood BLOOD SPECIMEN / Unknown [facility] / Unknown 04/15/2024 1:57 PM SPECIAL DELIVERY WORKER 04/15/2024 1:57 PM SPECIAL DELIVERY WORKER [facility]ative [facility] 04/15/2024 11:44 PM SPECIAL DELIVERY WORKER This procedure was originally ordered at [facility]. us Yao Macedo NP HEMATOLOGY Final Resul t Performing Organization Address City/[facility]/ZIP Co de Phone Number [facility] [address] [place] [id number], [place] * ECHO TTE LIMITED W CONTRAST (04/15/2024 12:03 PM SPECIAL DELIVERY WORKER) Only the most recent of2 resultswithin the time period is included. PEAK TR VELOCITY 3.2 m/s LVEDD 4.2 cm EJECTION FRACTION 40 - 45% AORTIC VALVE MEAN PG 12 mmHg Anatomical Region Laterality Modality Ultrasound 04/15/2024 11:1 0 AM SPECIAL DELIVERY WORKER Narrative 04/15/2024 12:30 PM SPECIAL DELIVERY WORKER ECHOCARDIOGRAM EMILEE CHEN : 1935 89 years Study Date: 04/15/2024 11:10:15 AM Gender: F BP: 111/64 mmHg Height: 150.00 cm BSA: 1.47 m Weight: 53.00 kg Tech: [facility] Referring MD: YAO MACEDO Site: [facility] Reading Location: Mobile OP Patient Location: Outpatient. Procedure: Limited Echo w/ Contrast, Color Doppler and Limited Spectral Doppler. Indication for study: Severe mitral regurgitation, s/p MitraClip Cardiac Rhythm: Atrial fibrillation.Study quality: Fair. Final Impressions: Limited Echocardiogram performed 1. Normal LV size, normal wall thickness, mildly reduced global systolic function with an estimated EF of 40 - 45%. 2. Echo contrast was administered to enhance visualization of all left ventricular segments. 3. Right ventricular cavity size is mildly enlarged, global systolic RV function is normal. 4. The aortic valve is functioning size unknown mechanical St. Donovan AVR, no stenosis and trivial regurgitation. 5. The mitral valve is S/P MitraClip; the clip is well-seated and stable., trace mitral regurgitation. 6. The transmitral peak and mean gradients are 6.8 and 2.1 mmhg respectively (heart rate 65bpm). 7. No pericardial effusion. Chamber Sizes and Function Normal left ventricular size, normal wall thickness, mildly reduced global systolic function with an estimated EF of 40 - 45%. Right ventricular cavity size is mildly enlarged, global systolic RV function is normal. Valves, RV Pressures and Diastolic Function The aortic valve is functioning size unknown mechanical St. Donovan replacement, no stenosis and trivial regurgitation. The mitral valve is S/P MitraClip; the clip is well-seated and stable., trace mitral regurgitation. The mitral valve peak velocity is 1.43 m/s and the mean gradient is 3.6 mmHg. The transmitral peak and mean gradients are 6.8 and 2.1 mmhg respectively (heart rate 65bpm). The tricuspid regurgitant velocity is 3.2 m/s, the estimated right ventricular systolic pressure is 41 mmHg plus right atrial pressure. Masses, Effusion, Shunts There is no pericardial effusion. MEASUREMENTS AND CALCULATIONS 2-D Measurements and LV Function: LVID (d) 4.2 cm LV FS% (2D) 20 % LVID (s) 3.4 cm HR 81 bpm IVS (d) 1.0 cm LVPW (d) 0.9 cm Aortic Valve: Vmax 2.2 m/s Max PG 20 mmHg VTI 0.43 m Mean PG 12 mmHg LVOT V max 0.6 m/s Dim Index 0.27 LVOT VTI 0.12 m Mitral Valve: MV Mean G 4 mmHg MV VTI 0.26 m Tricuspid Valve and estimated PA pressures: TR Vmax 3.2 m/s TR maxG 41 mmHg Contrast documentation: 3 ml diluted Definity, lot #[id number], [facility]# [id number] was administered peripherally to enhance visualization of all left ventricular segments. . This study was interpreted by an [facility] accredited facility. Final Procedure Note Lluvia Keith, [facility] - 04/15/2024 ECHOCARDIOGRAM EMILEE CHEN : 1935 89 years Study Date: 04/15/2024 11:10:15 AM Gender: F BP: 111/64 mmHg Height: 150.00 cm BSA: 1.47 m Weight: 53.00 kg Tech: [facility] Referring MD: YAO MACEDO Site: [facility] Reading Location: Mobile OP Patient Location: Outpatient. Procedure: Limited Echo w/ Contrast, Color Doppler and Limited SpectralDoppler. Indication for study: Severe mitral regurgitation, s/p MitraClip Cardiac Rhythm: Atrial fibrillation.Study quality: Fair. Final Impressions: Limited Echocardiogram performed 1. Normal LV size, normal wall thickness, mildly reduced global systolicfunction with an estimated EF of 40 - 45%. 2. Echo contrast was administered to enhance visualization of all leftventricular segments. 3. Right ventricular cavity size is mildly enlarged, global systolic RVfunction is normal. 4. The aortic valve is functioning size unknown mechanical St. Donovan AVR,no stenosis and trivial regurgitation. 5. The mitral valve is S/P MitraClip; the clip is well-seated andstable., trace mitral regurgitation. 6. The transmitral peak and mean gradients are 6.8 and 2.1 mmhgrespectively (heart rate 65bpm). 7. No pericardial effusion. Chamber Sizes and Function Normal left ventricular size, normal wall thickness, mildly reduced globalsystolic function with an estimated EF of 40 - 45%. Right ventricularcavity size is mildly enlarged, global systolic RV function is normal. Valves, RV Pressures and Diastolic Function The aortic valve is functioning size unknown mechanical St. Judereplacement, no stenosis and trivial regurgitation. The mitral valve isS/P MitraClip; the clip is well-seated and stable., trace mitralregurgitation. The mitral valve peak velocity is 1.43 m/s and the meangradient is 3.6 mmHg. The transmitral peak and mean gradients are 6.8 and2.1 mmhg respectively (heart rate 65bpm). The tricuspid regurgitantvelocity is 3.2 m/s, the estimated right ventricular systolic pressure is41 mmHg plus right atrial pressure. Masses, Effusion, Shunts There is no pericardial effusion. MEASUREMENTS AND CALCULATIONS 2-D Measurements and LV Function: LVID (d) 4.2 cm LV FS% (2D) 20 % LVID (s) 3.4 cm HR 81 bpm IVS (d) 1.0 cm LVPW (d) 0.9 cm Aortic Valve: Vmax 2.2 m/s Max PG 20 mmHg VTI 0.43 m Mean PG 12 mmHg LVOT V max 0.6 m/s Dim Index 0.27 LVOT VTI 0.12 m Mitral Valve: MV Mean G 4 mmHg MV VTI 0.26 m Tricuspid Valve and estimated PA pressures: TR Vmax 3.2 m/s TR maxG 41 mmHg Contrast documentation: 3 ml diluted Definity, lot #[id number], [facility]#[id number] was administered peripherally to enhance visualization of allleft ventricular segments. . This study was interpreted by an [facility] accredited facility. Final us Yao Macedo MEDICAL TERRITORY MANAGER ECHO ORD Final Resul t * (ABNORMAL) STAT - PLATELET COUNT [[id number]] - Standing Order (03/26/2024 12:55 PM SPECIAL DELIVERY WORKER) Only the most recent of2 resultswithin the time period is included. PLATELET COUNT 253 140 - 440 thou/cu mm 03/26/2024 3:03 PM SPECIAL DELIVERY WORKER [facility] MPV 11.5(H) 6.5 - 11.0 fL 03/26/2024 3:03 PM SPECIAL DELIVERY WORKER [facility] Blood BLOOD SPECIMEN / Unknown Venipuncture / Unknown 03/26/2024 12:55 PM SPECIAL DELIVERY WORKER 03/26/2024 12:55 PM SPECIAL DELIVERY WORKER Stacy Urias MD HEMATOLOGY Final Resul t Performing Organization Address City/[facility]/ZIP Co de Phone Number [facility] [address] [place] [address], [place] * (ABNORMAL) APTT (03/23/2024 5:01 AM SPECIAL DELIVERY WORKER) Only the most recent of2 resultswithin the time period is included. APTT 58(H) 25 - 36 sec 03/23/2024 5:49 AM SPECIAL DELIVERY WORKER [facility] Blood BLOOD SPECIMEN / Unknown Venipuncture / Unknown 03/23/2024 5:01 AM SPECIAL DELIVERY WORKER 03/23/2024 5:21 AM SPECIAL DELIVERY WORKER Narrative [facility] - 03/23/2024 5:49 AM SPECIAL DELIVERY WORKER Therapeutic Range: 59-89 seconds Nick Olsen MD HEMATOLOGY Final Result Performing Organization Address [facility] Co de Phone Number [facility] [address] [place] [address], [place] * (ABNORMAL) HEMOGLOBIN (03/22/2024 4:11 PM SPECIAL DELIVERY WORKER) HEMOGLOBIN 10.6(L) 12.0 - 16.0 g/dL 03/22/2024 4:26 PM SPECIAL DELIVERY WORKER [facility] MCV 87 80 - 100 fL 03/22/2024 4:26 PM SPECIAL DELIVERY WORKER [facility] Blood BLOOD SPECIMEN / Unknown Butterfly / Unknown 03/22/2024 4:11 PM SPECIAL DELIVERY WORKER 03/22/2024 4:21 PM SPECIAL DELIVERY WORKER Narrative [facility] - 03/22/2024 4:26 PM SPECIAL DELIVERY WORKER Obtain before initiating IV heparin therapy if not done within previous 24 hours. Obtain before initiating IV heparin therapy if not done within previous 24 hours. Obtain before initiating IV heparin therapy if not done within previous 24 hours. Charley CELESTIN HEMATOLOGY Fi nal Result Performing Organization Address [facility]/ZIP Co de Phone Number [facility] [address] [place] [address], [place] * HEMATOCRIT (03/22/2024 4:11 PM SPECIAL DELIVERY WORKER) HEMATOCRIT 34.3 33.0 - 51.0 % 03/22/2024 4:26 PM SPECIAL DELIVERY WORKER [facility] Blood BLOOD SPECIMEN / Unknown Butterfly / Unknown 03/22/2024 4:11 PM SPECIAL DELIVERY WORKER 03/22/2024 4:21 PM SPECIAL DELIVERY WORKER Narrative [facility] - 03/22/2024 4:26 PM SPECIAL DELIVERY WORKER Obtain before initiating IV heparin therapy if not done within previous 24 hours. Obtain before initiating IV heparin therapy if not done within previous 24 hours. Obtain before initiating IV heparin therapy if not done within previous 24 hours. Charley CELESTIN HEMATOLOGY Fi nal Result Performing Organization Address [facility] Co de Phone Number [facility] [address] [place] [address], [place] * BUN (03/22/2024 4:11 PM SPECIAL DELIVERY WORKER) BUN 20 8 - 23 mg/dL 03/22/2024 4:46 PM SPECIAL DELIVERY WORKER [facility] Blood BLOOD SPECIMEN / Unknown Butterfly / Unknown 03/22/2024 4:11 PM SPECIAL DELIVERY WORKER 03/22/2024 4:21 PM SPECIAL DELIVERY WORKER Charley CELESTIN CHEMISTRY Fi nal Result Performing Organization Address City/[facility]/ZIP Co de Phone Number [facility] [address] [place] [address], [place] * (ABNORMAL) CREATININE (03/22/2024 4:11 PM SPECIAL DELIVERY WORKER) eGFR 74(L) >90 mL/min/1.7 3m2 03/22/2024 4:46 PM SPECIAL DELIVERY WORKER [facility] Comment:As of 2021, eG FR is calculated by the CKD-EPI creatinine equation without race adjustment. eGFR can be influenced by muscle mass, exercise, and diet. The reported eGFR is an estimation only and is only applicable if the renal function is stable. CREATININE 0.78 0.50 - 0.90 mg/dL 03/22/2024 4:46 PM SPECIAL DELIVERY WORKER [facility] Blood BLOOD SPECIMEN / Unknown Butterfly / Unknown 03/22/2024 4:11 PM SPECIAL DELIVERY WORKER 03/22/2024 4:21 PM SPECIAL DELIVERY WORKER Charley CELESTIN CHEMISTRY Fi nal Result Performing Organization Address City/State/[facility] Co de Phone Number [facility] [address] [address], * ECHO LIGIA TRANSCATHETER INTRAOP PROCEDURE (03/22/2024 3:43 PM SPECIAL DELIVERY WORKER) EJECTION FRACTION 55 - 60% Anatomical Region Laterality Modality HEART Ultrasound 03/22/2024 3:27 PM SPECIAL DELIVERY WORKER Narrative 03/22/2024 3:53 PM SPECIAL DELIVERY WORKER TRANSESOPHAGEAL ECHOCARDIOGRAM EMILEE CHEN : 1935 89 years Study Date: 03/22/2024 3:27:42 PM Gender: F BP: 140/60 mmHg Height: 148.00 cm BSA: 1.45 m Weight: 53.00 kg Tech: Kath ART: [id number] Leobardo Be MD Site: [facility] Reading Location: [facility] Patient Location: Procedure: LIGIA, Color Doppler, Spectral Doppler and 3D Imaging. Indication for study: Intra-Procedural LIGIA for MitraClip (1 NT); good autoCFQ Cardiac Rhythm: Regular.Study quality: Excellent. Final Impressions: 1. Mildly increased left ventricular size, normal global systolic function with an estimated EF of 55 - 60%. 2. Mildly enlarged left atrium. 3. The mitral valve is Degenerative with a localised flail of the P1 segment. There is calcification of the mitral chords. By 3D reconstruction, the 3D MV EOA 4.06cm2. The 3D VCA (average) = 45mm2., severe mitral regurgitation. 4. Atrial septum is intact. 5. No evidence of thrombus present in the left atrial appendage. 6. No pericardial effusion. 7. Intra-Procedural LIGIA: A transeptal puncture was performed using LIGIA guidance with the puncture site 3.4 cm above the mitral valve annulus. The guiding catheter was positioned with the tip across the interatrial septum. The NT MitraClip was introduced into the left atrium and positioned over the mitral valve leaflets. (A1P1) 2D and 3D guidance was used to position the opened clip orthogonal to the commissural plane. The device was advanced across the mitral annulus and re-positioned. Anterior and posterior leaflet grasp was imaged with adequate tissue seen within the clip. 2D and 3D imaging was used to ensure both leaflets were within the clip. Color Doppler revealed a trace MR jet medial to the clip. Prior to clip release, the mitral valve peak/mean transmitral gradients were 11 and 3 mmHg respectively. The clip was released and appeared well-seated. The residual MR jets were trace. By 3D reconstruction, the 3D VCA = 4mm2. There was no reversal of pulmonary vein flow seen. Withdrawal of the catheters was monitored continuously; there is a small residual atrial septal defect with left to right shunting seen by color Doppler. By the end of the study, there was no pericardial effusion. Procedure comments: Indications, goals, risks and alternatives of the procedure were discussed with the patient and informed consent was obtained. The patient received general anesthesia. See procedural record for anesthesia details. Prior to performance of procedure, time out was called to accurately identify the patient and procedure. The X8-2T probe was passed without difficulty. LIGIA, Color Doppler, Spectral Doppler and 3D Imaging was performed. The patient developed no apparent complications during the procedure. Estimated Blood Loss: 0 ml Versed: Specimen Collected: Proceduralist: Lluvia Keith MD Post Procedure Findings Chamber Sizes and Function Mildly increased left ventricular size, normal global systolic function with an estimated EF of 55 - 60%. No resting regional wall motion abnormality visualized. Left atrial size is mildly enlarged. The left atrial appendage is well visualized and there is no evidence of thrombus present. Not well visualized left atrial appendage flow velocities. Valves, RV Pressures and Diastolic Function The mitral valve is Degenerative with a localised flail of the P1 segment. There is calcification of the mitral chords. By 3D reconstruction, the 3D MV EOA 4.06cm2. The 3D VCA (average) = 45mm2., severe mitral regurgitation. The mitral valve peak velocity is 1.17 m/s and the mean gradient is 2.0 mmHg. Masses, Effusion, Shunts There is no pericardial effusion. Atrial septum is intact. Agitated saline injection not done. MEASUREMENTS AND CALCULATIONS 2-D Measurements and LV Function: HR 70 bpm Mitral Valve: MV Mean G 2 mmHg . Final Procedure Note Lluvia Keith, [facility] - 03/22/2024 TRANSESOPHAGEAL ECHOCARDIOGRAM EMILEE CHEN : 1935 89 years Study Date: 03/22/2024 3:27:42 PM Gender: F BP: 140/60 mmHg Height: 148.00 cm BSA: 1.45 m Weight: 53.00 kg Tech: Referring : [id number] Leobardo Baugh Site: [facility] Reading Location: [facility] Patient Location: Procedure: LIGIA, Color Doppler, Spectral Doppler and 3D Imaging. Indication for study: Intra-Procedural LIGIA for MitraClip (1 NT); goodautoCFQ Cardiac Rhythm: Regular.Study quality: Excellent. Final Impressions: 1. Mildly increased left ventricular size, normal global systolicfunction with an estimated EF of 55 - 60%. 2. Mildly enlarged left atrium. 3. The mitral valve is Degenerative with a localised flail of the [id number]. There is calcification of the mitral chords. By 3Dreconstruction, the 3D MV EOA 4.06cm2. The 3D VCA (average) = 45mm2.,severe mitral regurgitation. 4. Atrial septum is intact. 5. No evidence of thrombus present in the left atrial appendage. 6. No pericardial effusion. 7. Intra-Procedural LIGIA: A transeptal puncture was performed using TEEguidance with the puncture site 3.4 cm above the mitral valve annulus. The guiding catheter was positioned with the tip across theinteratrial septum. The NT MitraClip was introduced into the left atrium and positionedover the mitral valve leaflets. (A1P1) 2D and 3D guidance was used to position the opened clip orthogonal tothe commissural plane. The device was advanced across the mitral annulus and re-positioned. Anterior and posterior leaflet grasp was imaged with adequate tissueseen within the clip. 2D and 3D imaging was used to ensure both leaflets were within theclip. Color Doppler revealed a trace MR jet medial to the clip. Prior to clip release, the mitral valve peak/mean transmitralgradients were 11 and 3 mmHg respectively. The clip was released and appeared well-seated. The residual MR jets were trace. By 3D reconstruction, the 3D VCA =4mm2. There was no reversal of pulmonary vein flow seen. Withdrawal of the catheters was monitored continuously; there is asmall residual atrial septal defect with left to right shunting seen bycolor Doppler. By the end of the study, there was no pericardial effusion. Procedure comments: Indications, goals, risks and alternatives of theprocedure were discussed with the patient and informed consent wasobtained. The patient received general anesthesia. See procedural recordfor anesthesia details. Prior to performance of procedure, time out wascalled to accurately identify the patient and procedure. The X8-2T probewas passed without difficulty. LIGIA, Color Doppler, Spectral Doppler and 3DImaging was performed. The patient developed no apparent complicationsduring the procedure. Estimated Blood Loss: 0 ml Versed: Specimen Collected: Proceduralist: Lluvia Keith MD Post Procedure Findings Chamber Sizes and Function Mildly increased left ventricular size, normal global systolic functionwith an estimated EF of 55 - 60%. No resting regional wall motionabnormality visualized. Left atrial size is mildly enlarged. The leftatrial appendage is well visualized and there is no evidence of thrombuspresent. Not well visualized left atrial appendage flow velocities. Valves, RV Pressures and Diastolic Function The mitral valve is Degenerative with a localised flail of the P1 segment.There is calcification of the mitral chords. By 3D reconstruction, the 3DMV EOA 4.06cm2. The 3D VCA (average) = 45mm2., severe mitralregurgitation. The mitral valve peak velocity is 1.17 m/s and the meangradient is 2.0 mmHg. Masses, Effusion, Shunts There is no pericardial effusion. Atrial septum is intact. Agitated salineinjection not done. MEASUREMENTS AND CALCULATIONS 2-D Measurements and LV Function: HR 70 bpm Mitral Valve: MV Mean G 2 mmHg . Final Leobardo Be MD, PhD ECHO ORD Fin al Result * (ABNORMAL) ACTIVATED CLOTTING TIME UHC700 ACT (03/22/2024 3:23 PM SPECIAL DELIVERY WORKER) Only the most recent of2 resultswithin the time period is included. [facility] ACTIVATED CLOTTING TIME, POCT 223(H) 74 - 125 sec 03/26/2024 6:20 AM SPECIAL DELIVERY WORKER [facility] Blood BLOOD SPECIMEN / Unknown 03/22/2024 3:23 PM SPECIAL DELIVERY WORKER 03/26/2024 6:20 AM SPECIAL DELIVERY WORKER Leobardo Be MD, PhD HEMATOLOGY Fin al Result [facility] [address] [place] [address], * HCHG TUBE PR1, HCHG STYLET PR1 (03/22/2024 2:52 PM SPECIAL DELIVERY WORKER) Narrative Lorrie Pate CRNA - 03/22/2024 2:52 PM SPECIAL DELIVERY WORKER Lorrie Pate CRNA 03/22/2024 2:52 PM Procedure: ETT Patient location during procedure: OR ETT Properties Mask Ventilation: easy Final Technique: direct laryngoscopy Type: straight Location: oral Cuffed: yes Tube Size: 7.0 mm Stylet: yes Laryngoscope Blade: Rod Blade Size: 2 Cormack-Lehane Grade View: 1 Insertion Attempts: 1 Placement Verification: auscultation, end tidal CO2 and symmetrical chest wall movement Assessment: pharynx clear, atraumatic and dentition unchanged Secured at: 22 Measured From: teeth Difficulty: 0 (not difficult) Wendi Reed MD ANESTHESIA PX NOTE ORDERABLE S Final Result * CVL OTHER PROCEDURE (03/22/2024 2:43 PM SPECIAL DELIVERY WORKER) Anatomical Region Laterality Modality X-Ray Angiograph y, X-Ray Angiography 03/22/2024 2:43 PM SPECIAL DELIVERY WORKER Narrative Procedure Note Leobardo Be MD - 03/22/2024 3:44 PM CST DATE OF SERVICE: 03/22/24 PRE-OPERATIVE DIAGNOSIS: Severe symptomatic tricuspid regurgitation POST-OPERATIVE DIAGNOSIS: Trivial MR, s/p transcatheter MV repair withNT DEPOSIT CLERK: Leobardo Be MD, PhD Lluvia Keith, [facility] SABI Dockery The risks, benefits, alternatives of the procedure were discussed with thepatient and family. Informed consent was obtained from the patient priorto proceeding. The patient was brought to the hybrid operating room andsedated with the assistance of general anesthesia. The chest, neck andgroins were prepped and draped in the usual sterile fashion.Ultrasound-guided access was performed for placement of sheath in theright femoral vein, and transseptal puncture was performed at a height of3.8 cm in standard fashion with a [place] C0 needle, with confirmation ofthe location in the LA using echocardiography, fluoroscopy, and LAP. Wefound severe left atrial hypertension with a V wave of 16 mmHg and a meanleft atrial pressure of 9 mmHg. We exchanged for a steerable guidecatheter, followed by insertion of the clip delivery system. We steereddown to the valve and oriented ourselves above the mitral valve orificeusing transesophageal echocardiography. We then crossed into the LV andgrasped the leaflets in standard fashion using a NT system. We confirmedadequate leaflet insertion in multiple transesophogeal echocardiographyviews and no significant mitral stenosis. The mean gradient was 3 mmHg.We deployed the clip. Final residual MR was trivial. We interrogated theatrial septum and there were no indications for closure. All deliverycatheters were removed. The right access site groin was closed usingFigure of 8 suture. There were no complications. The patient was awokenand transferred to anesthesia recovery unit in hemodynamically stablecondition. Leobardo Be MD, PhD, [facility] Negative Restorer [facility] [address], [address] [place] [address] O: [phone] F: [phone] Transcriptions Leobardo Be MD - 03/22/2024 6:22 PM CST [facility] at [facility] Cardiac Catheterization Report Name: EMILEE CHEN Event Date: 03/22/2024 14:43 Excellian ID #: [id number] TIAN #: [id number] Patient Class: Outpatient Diagnostic Physician: LEOBARDO BE [facility] Interventional Physician: LEOBARDO BE [facility] Referring Physician: Primary Care Physician: STACY URIAS Date: 1935 Gender: Female Age: 89 Summary/Conclusions PRESENTATION / INDICATIONS * Severe mitral regurgitation VASCULAR ACCESS * Using ultrasound guidance and a percutaneous technique, the rightfemoral vein was accessed. Ultrasound was used to confirm vessel patency,localizing needle into the lumen of the vessel. An image was saved for themedical record. VALVULAR AND STRUCTURAL HEART INTERVENTION * Transcatheter mitral valve repair was performed a Mitraclip NT. * Residual regurgitation was Trace RECOMMENDATIONS & PLAN * Medical Rx * Follow up with primary physician * Follow up with medical claims manager Consent & Brandon Protocol The risks, benefits, and alternatives of the procedure were discussed withthe patient and written informed consent was obtained. Brandon protocol was followed. TIME OUT conducted just prior tostarting procedure confirmed patient identity, site/side, procedure,patient position, and availability of correct equipment and implants (ifapplicable). Staff Name Title Leobardo Be Negative Restorer Charley Spencer Physician Parquetry Floor Layer Edith Giordano RN Nurse Germain Ji CVT Monitor Lindy Ely CVT Nurseryman Assistant TyMercedez ware CVT Nurseryman Assistant Procedures ? Ultrasound Guided Vascular Access ? Left Heart Cath No Ventriculogram ? MitraClip (Initial Clip) Hemodynamics State: Baseline Pressures (mmHg) Site Systolic Diastolic End Diastolic A Wave V Wave Mean LA 12 16 9 State: Phase 2 Pressures (mmHg) Site Systolic Diastolic End Diastolic A Wave V Wave Mean LA 15 23 14 Procedure Details Estimated Blood Loss: < 30 ml Specimen Collected: None Level of Sedation Achieved: See Anesthesia Note Procedure Start: 14:43 Procedure End: 15:21 Procedure Time: 38 min Fluoroscopy Time: 9.3 min Cumulative Air Kerma: 36 mGy DAP: 862 uGy/M2 Physiologic Data Weight: 53.5 kg BSA: 1.48 m2 Vascular Access Time Access Sheath Size 14:45 Right Femoral Vein, sheath inserted. Medications Ordered and Administered Start Time Stop Time Medication Dose Units Route Ordered By Given By The anesthesia service monitored the patient?s conscious sedation duringthe procedure. The medications listed above were verbally ordered by me and read back tome as documented above. Refer to the procedure log report for additional case details. electronically signed on 03/22/2024 6:22:25 PM with status of Final Leobardo Be MD [facility] [address] [place] [address] (p) [phone](f) us Leobardo Be MD, PhD CV IMAGING Saud zainab Result - Final * RBC W/O TYPE & SCREEN (03/22/2024 1:43 PM SPECIAL DELIVERY WORKER) [facility] QUANTITY 2 03/22/2024 1:4 3 PM SPECIAL DELIVERY WORKER [facility] B[facility]OD B[facility] Blood BLOOD SPECIMEN / Unknown 03/22/2024 1:38 PM SPECIAL DELIVERY WORKER us Leobardo Be MD, PhD BLOOD BANK Saud zainab Result - Final [facility] [address] [place] [address], [place] [phone] * RED BLOOD CELLS EA UNIT (03/22/2024 1:40 PM SPECIAL DELIVERY WORKER) Only the most recent of2 resultswithin the time period is included. [facility] CROSSMATCH Compatible Compatible [facility] B[facility]OD [facility] PRODUCT BLOOD TYPE O Rh Positive [facility] B[facility]OD [facility] PRODUCT ID NUMBER [id number] [facility] BLOOD [facility] PRODUCT STATUS /Relea sed [facility] B[facility]OD [facility] PRODUCT DESCRIPTION RBC -1 LR [facility]LOOD [facility] PRODUCT CODE [id number] [facility]OD [facility] Leobardo Be MD, PhD BLOOD BANK Saud zainab Result - Final [facility] [address] [place] [address], * TYPE & SCREEN (03/22/2024 11:54 AM SPECIAL DELIVERY WORKER) ABORH O Rh Positive 03/22/2024 12:52 PM SPECIAL DELIVERY WORKER [facility] BLOOD B[facility] ANTIBODY SCREEN Negative Negative 03/22/2024 12:52 PM SPECIAL DELIVERY WORKER [facility] BLOOD BANK SPECIMEN EXPIRATION DATE/TIME 03/25/24 23:59 03/22/2024 12:52 PM SPECIAL DELIVERY WORKER [facility] Blood BLOOD SPECIMEN / Unknown Venipuncture / Unknown 03/22/2024 11:54 AM SPECIAL DELIVERY WORKER 03/22/2024 12:07 PM SPECIAL DELIVERY WORKER Yao Macedo MEDICAL TERRITORY MANAGER BLOOD BANK Final Resul t Performing Organization Address City/[facility]/ZIP Co de Phone Number [facility] B[facility]OD B[facility] [address] [place] [id number], * (ABNORMAL) Glucose, Fasting (03/22/2024 11:54 AM SPECIAL DELIVERY WORKER) GLUCOSE 102(H) 70 - 99 mg/dL 03/22/2024 12:53 PM SPECIAL DELIVERY WORKER [facility] Blood BLOOD SPECIMEN / Unknown Venipuncture / Unknown 03/22/2024 11:54 AM SPECIAL DELIVERY WORKER 03/22/2024 12:07 PM SPECIAL DELIVERY WORKER us Yao Macedo MEDICAL TERRITORY MANAGER CHEMISTRY Final Resul t [facility] [address] [place] [address], [place] * SCAN-CARDIAC STRIP (03/22/2024 12:00 AM SPECIAL DELIVERY WORKER) Narrative 03/22/2024 12:00 AM SPECIAL DELIVERY WORKER Ordered by an unspecified provider. us Other Clinical Staff OTHER Final Resul t * XR DEXA BONE DENSITY 2 SITES (05/26/2009 2:09 PM SPECIAL DELIVERY WORKER) Anatomical Region Laterality Modality Spine, HIPS, HIPL, HIPR Other 05/26/2009 2:09 PM SPECIAL DELIVERY WORKER Narrative 05/29/2009 9:35 AM SPECIAL DELIVERY WORKER Please see scanned document for results of this study. Procedure Note Lora Krause PA - 06/01/2009 Please see scanned document for results of this study. us Patsy Berrios MD DEXA Maria Elena l Result from Last 3 Months or Most Recently Relevant to Health Maintenance Insurance MEDICARE PB ONLY MEDICARE PART A HB ONLY MEDICARE PART B HB ONLY [facility] Advance Directives * Full Code (Latest Code Status on File) Date Activated Date Inactivated Comments 03/22/2024 3:38 PM 03/23/2024 1:36 PM Question Answer Comments Code Status Discussion: Discussed * Full Code Date Activated Date Inactivated Comments 09/13/2023 10:59 AM 09/14/2023 2:13 AM Question Answer Comments Code Status Discussion: Reviewed Preferences * Full Code Date Activated Date Inactivated Comments 08/11/2016 1:40 PM 08/11/2016 4:36 PM Question Answer Comments Code Status Discussion: Not Discussed * Full Code Date Activated Date Inactivated Comments 08/11/2016 11:45 AM 08/11/2016 1:40 PM * Full Code Date Activated Date Inactivated Comments 07/28/2016 12:46 PM 07/28/2016 3:19 PM Question Answer Comments Code Status Discussion: Not Discussed Care Teams Oracle Sql Developer Relationship Specialty [place] [address] [place] [address] PCP - General Family Practice 08/10/21
--- NOTE | 2024-06-21 18:09 | CRLHL7_ITS ---
For Patients: As a result of the Century Cures Act, medical imaging exams and procedure reports are released immediately into your electronic medical record. You may view this report before your referring provider. If you have questions, please contact your health care provider. Indication: Fall, neck pain. Technique: Noncontrast CT of the cervical spine with multiplanar reconstruction causing bone and soft tissue algorithms. Comparison: None available. Findings: No acute fracture or traumatic subluxation. No lytic or blastic lesion. Trace grade 1 anterolisthesis at C6-C7. Multiple calcified thyroid nodules, the largest on the left partially imaged measuring at least 2.1 cm. No significant spinal canal stenosis. Multilevel neural foraminal narrowing, severe on the right at C4-C5. Impression: 1. No acute fracture or traumatic subluxation. 2. Advanced cervical spondylosis with severe right neural foraminal narrowing at C4-C5. 3. Multiple bilateral calcified thyroid nodules. Recommend further ultrasound characterization if not already performed. Please note that all CT scans at this facility use dose modulation, iterative reconstruction, and/or weight-based dosing when appropriate to reduce radiation dose to as low as reasonably achievable. Dictated by Guillaume Chadwick MD @ 06/21/2024 7:47:32 PM (Electronically Signed)
--- NOTE | 2024-06-21 18:09 | CRLHL7_ITS ---
For Patients: As a result of the Century Cures Act, medical imaging exams and procedure reports are released immediately into your electronic medical record. You may view this report before your referring provider. If you have questions, please contact your health care provider. Indication: Fall, forehead laceration, on Coumadin. Technique: Noncontrast CT of the head with multiplanar reconstruction utilizing bone and soft tissue algorithms. Comparison: CT head dated 07/29/2022. Findings: No acute intracranial hemorrhage. The hickman-white matter interface is preserved. Similar mild diffuse parenchymal volume loss. No ventricular obstruction. No abnormal extra-axial fluid collection. Small left frontal scalp hematoma. No underlying calvarial fracture. Symmetric globes without evidence of penetrating injury. Bilateral pseudophakia. Partial opacification of the left maxillary sinus with gaseous secretions. Impression: 1. No acute intracranial hemorrhage. 2. Small left frontal scalp hematoma. No underlying calvarial fracture. 3. Partial opacification of the left maxillary sinus with bubbly secretions suggestive of acute sinusitis. Please note that all CT scans at this facility use dose modulation, iterative reconstruction, and/or weight-based dosing when appropriate to reduce radiation dose to as low as reasonably achievable. Dictated by Guillaume Chadwick MD @ 06/21/2024 7:43:22 PM (Electronically Signed)
--- NOTE | 2024-06-21 18:33 | ED_ITS ---
HPI - General Adult General Time Seen by Provider: 18:33 Date Seen: 06/21/24 Chief complaint: Fall/Minor Trauma Stated complaint: Fell on Monday, hit top of head, has chills Time Seen by Provider: 06/21/24 18:10 Source: patient and RN notes reviewed Mode of arrival: ambulatory Limitations: no limitations History of Present Illness HPI narrative: This 89-year-old female was advised to come in from clinic today after her INR came back elevated at 16. She is on Coumadin for valve replacement. She fell Monday night, today is Monday. She tripped in the dark, hit the front of her head. She does have a cut in her left upper hairline that is scabbed over, no bleeding. She states she has no headache. She does get some pain in her neck range of motion but feels this is similar to her baseline. No pain going into her arms. She is not bleeding anywhere. When her INR came back elevated, they did do a peripheral draw, she pulls out the bandage and just has a little small spot of blood on it, feels that that did not bleed much either. She has not taken her anticoagulation today. Nothing else was injured, she has no complaints. She was told to come in. Related Data Home Medications ?Medication ?Instructions ?Recorded ?Confirmed albuterol sulfate 90 mcg/actuation g inhalation 02/25/22 07/21/22 aerosol inhaler atorvastatin 10 mg tablet 10 mg PO QHS 02/25/22 06/21/24 blood sugar diagnostic (OneTouch #10 ea 02/25/22 07/21/22 Ultra Test strips) calcium 300 mg-vit D3 200 1 tab PO QDAY 02/25/22 07/21/22 yzam-zdqketwb-liwekxxls 13.5 mg tablet (Citracal Plus Bone Density Builder) glipizide 5 mg tablet, extended ea PO 02/25/22 07/21/22 release 24 hr lisinopril 5 mg tablet 5 mg PO QDAY 02/25/22 06/21/24 metformin 500 mg tablet,extended ea PO 02/25/22 07/21/22 release 24 hr warfarin 5 mg tablet 5 mg PO 5XW 02/25/22 06/21/24 metoprolol succinate 25 mg tab PO 05/16/22 07/21/22 tablet,extended release 24 hr empagliflozin 25 mg tablet 25 mg PO DAILY 06/21/24 06/21/24 (Jardiance) furosemide 20 mg tablet mg DAILY 06/21/24 Allergies Allergy/AdvReac Type Severity Reaction Status Date / Time No Known Drug Allergies Allergy Verified 07/21/22 10:58 Review of Systems Status of ROS: Reports: 6 or more systems reviewed and unremarkable except as noted in History and below [facility] Surgical History History of hysterectomy ?Z90.710 - 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 She is ambulatory into the ED of her own accord. She has about a 4 cm linear scab that is well approximated and no active bleeding, this is in the left upper hairline along the forehead. There is no visible hematoma or significant ecchymosis around this. Pupils equal round reactive, sclera clear, extraocular muscles intact, face atraumatic. She has no midline tenderness of her neck but when she demonstrates range of motion you can hear some cracking of her neck. Arms and legs with a normal neurovascular status. Lungs are clear, good air entry, no wheezing or crackles. CV regular rate and rhythm, does have systolic murmur consistent with valve replacement. No other traumatic area noted on examination. Documenting provider has reviewed patient's vital signs: yes Course Course ED Course: Patient will have a head CT, did discuss the bleeding that can happen with Coumadin, I would safe she has some it is not clinically significant at this time but with an elevated INR would warrant monitoring. We will check a CBC, confirm INR level. Likely to give vitamin K in the situation of her INR is really that therapeutic. She has no evidence of bleeding anywhere right now. Reevaluation(s) Time of Reevaluation #1: 19:55 Reevaluation #1: Have reviewed with patient her CT findings. She is absolutely having no sinus symptoms, no drainage, no discomfort. Thus, am not going to treat for acute sinusitis. 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 She is to follow up outpatient to see if she needs ultrasound done of this thyroid. Vital Signs Vital signs: Initial Vital Signs Temperature 98.1 F 06/21/24 17:49 Temperature Source Temporal Artery Scan 06/21/24 17:49 Pulse Rate 81 06/21/24 17:49 Pulse Rhythm Irregular 06/21/24 17:49 Respiratory Rate 18 06/21/24 17:49 Blood Pressure 111/64 06/21/24 17:49 Blood Pressure Mean 79 06/21/24 17:49 Blood Pressure Position Sitting 06/21/24 17:49 Pulse Oximetry 97 06/21/24 17:49 Oxygen Delivery Method Room Air 06/21/24 17:49 Vital Signs Temperature 98.1 F 06/21/24 17:49 Pulse Rate 81 06/21/24 17:49 Respiratory Rate 18 06/21/24 17:49 Blood Pressure 111/64 06/21/24 17:49 Pulse Oximetry 97 06/21/24 17:49 Oxygen Delivery Method Room Air 06/21/24 17:49 Temperature 98.1 F 06/21/24 17:49 Pulse Rate 81 06/21/24 17:49 Respiratory Rate 18 06/21/24 17:49 Blood Pressure 111/64 06/21/24 17:49 Pulse Oximetry 97 06/21/24 17:49 Oxygen Delivery Method Room Air 06/21/24 17:49 Medical Decision Making Lab Data Lab results reviewed: Yes I reviewed the patient's lab results Lab results narrative: Hemoglobin in her chart was 10.6 on 05/03/2024, has been running 10.3-10.6 over the last 3 months. Labs: Lab Results 06/21/24 Range/Units 18:51 WBC 7.17 (4.50-11.00) K/uL RBC 4.77 (4.00-5.20) m/uL Hgb 10.7 L (12.0-16.0) gm/dL Hct 36.5 (33.0-51.0) % MCV 77 L (80-100) fL MCH 22 L (26-34) pg MCHC 29 L (32-36) gm/dL RDW Coeff of Bernardo 18.4 H (11.5-15.5) % Plt Count 184 (140-440) K/uL Neut % (Auto) 71.7 (42.0-72.0) % Lymph % (Auto) 18.4 L (20-44) % [place] % (Auto) 7.7 (0.0-11.0) % Eos % (Auto) 1.4 (0.0-7.0) % Baso % (Auto) 0.4 (0.0-3.0) % Neut # (Auto) 5.14 (1.7-7.0) K/uL Lymph # (Auto) 1.30 (0.90-2.90) K/uL [place] # (Auto) 0.60 (0.00-0.90) K/UL Eos # (Auto) 0.10 (0.00-0.50) K/uL Baso # (Auto) 0.03 (0.00-0.30) K/uL Abs Immat Gran (auto) 0.03 (0.00-0.30) K/uL Imm/Tot Granulo (auto) 0.4 % INR 10.91 H* (0.91-1.10) Imaging Data CT scan - head: Attestation: I have reviewed the pertinent imaging results. Radiologist's impression: Patient: BEBE GARCIA Facility:?[facility] Patient ID:?[id number] Site Patient ID:?[id number]. Site :?[id number] Study:?CT-Head WITHOUT-06/21/2024 7:07:15 PM Ordering Physician:Jessica Vanessa Final Report: Indication: Fall, forehead laceration, on Coumadin. Technique: Noncontrast CT of the head with multiplanar reconstruction utilizing bone and soft tissue algorithms. Comparison: CT head dated 07/29/2022. Findings: No acute intracranial hemorrhage. The hickman-white matter interface is preserved. Similar mild diffuse parenchymal volume loss. No ventricular obstruction. No abnormal extra-axial fluid collection. Small left frontal scalp hematoma. No underlying calvarial fracture. Symmetric globes without evidence of penetrating injury. Bilateral pseudophakia. Partial opacification of the left maxillary sinus with gaseous secretions. Impression: 1. No acute intracranial hemorrhage. 2. Small left frontal scalp hematoma. No underlying calvarial fracture. 3. Partial opacification of the left maxillary sinus with bubbly secretions suggestive of acute sinusitis. Please note that all CT scans at this facility use dose modulation, iterative reconstruction, and/or weight-based dosing when appropriate to reduce radiation dose to as low as reasonably achievable. Dictated by Guillaume Chadwick MD @ 06/21/2024 7:43:22 PM (Electronic Signature) CT cervical spine: Attestation: I have reviewed the pertinent imaging results. Radiologist's impression: Patient: BEBE GARCIA Facility:?[facility] Patient ID:?[id number] Site Patient ID:?[id number]. Site :?[id number] Study:?CT-Spine Cervical WITHOUT-06/21/2024 7:06:54 PM Ordering Physician:Jessica Vanessa Final Report: Indication: Fall, neck pain. Technique: Noncontrast CT of the cervical spine with multiplanar reconstruction causing bone and soft tissue algorithms. Comparison: None available. Findings: No acute fracture or traumatic subluxation. No lytic or blastic lesion. Trace grade 1 anterolisthesis at C6-C7. Multiple calcified thyroid nodules, the largest on the left partially imaged measuring at least 2.1 cm. No significant spinal canal stenosis. Multilevel neural foraminal narrowing, severe on the right at C4-C5. Impression: 1. No acute fracture or traumatic subluxation. 2. Advanced cervical spondylosis with severe right neural foraminal narrowing at C4-C5. 3. Multiple bilateral calcified thyroid nodules. Recommend further ultrasound characterization if not already performed. Please note that all CT scans at this facility use dose modulation, iterative reconstruction, and/or weight-based dosing when appropriate to reduce radiation dose to as low as reasonably achievable. Dictated by Guillaume Chadwick MD @ 06/21/2024 7:47:32 PM (Electronic Signature) Discharge Plan Discharge Clinical Impression: Elevated INR Fall Qualifiers: Encounter type: initial encounter Qualified Code(s): W19.XXXA - Unspecified fall, initial encounter Patient Disposition: Home, Self-Care Condition: Stable Instructions: Fall Prevention (ED) Additional Instructions: INR was 10.91. Your given 2.5 mg oral vitamin K. Need your INR rechecked tomorrow morning. If you absolutely cannot get it done through your clinic, will have an order for to be rechecked here. Recommend follow-up with your primary doctor next week. There was incidental finding of calcified thyroid nodules on your CT, outpatient thyroid ultrasound should be considered in further workup of this. If you have any concerns for bleeding that is not stopping with 30 minutes of compression or noncompressible bleeding such as rectal bleeding, do need to be re-evaluated emergently. Activity Level: Activity as Tolerated Prescriptions: No Action warfarin 5 mg tablet 5 mg PO 5XW Patient Comments: 2.5mg PO 2xW glipizide 5 mg tablet extended release 24hr PO Patient Comments: TAKE 1 TABLET (5 MG) BY MOUTH ONCE DAILY BEFORE A MEAL. metformin 500 mg tablet extended release 24 hr PO Patient Comments: TAKE 2 TABLETS BY MOUTH IN THE MORNING AND 2 TABS IN THE EVENING WITH MEALS. lisinopril 5 mg tablet 5 mg PO QDAY atorvastatin 10 mg tablet 10 mg PO QHS (DME) OneTouch Ultra Test Strip See Rx Instructions .ROUTE .MEDSUPPLY Qty: 10 Patient Comments: TEST 1 TIME/DAY Rx Instructions: As directed albuterol sulfate 90 mcg/actuation HFA aerosol inhaler inhalation Citracal Plus Bone Density 300-200-13.5 mg-unit-mg tablet 1 tab PO QDAY metoprolol succinate 25 mg tablet extended release 24 hr PO furosemide 20 mg tablet DAILY Jardiance 25 mg tablet 25 mg PO DAILY Follow Up/Referrals: Siddharth Marquez MD [Primary Care Provider] - Stand Alone Forms: [employer] Info Instructions
--- OUTSIDE RECORDS SUMMARY | 2024-06-21 18:49 | XMS_ITS | Clinical Summary ---
Author Organization [facility] Address [place], [place] [address] Care Team Providers Care Mold Filler And Drainer Name Role Phone Stacy Urias MD Primary [...] nasal solution (FLONASE)Indica tions:Nasal congestion Inhale 1 Germfask into both nostrils once daily. 2 Bottle [...] regurgitation 10/30/19 24 Paroxysmal atrial fibrillation 07/18/2023 [place]ona of foot 10/18/2022 Personal history of fall [...] Department Care Team Description 06/21/2024 9:35 AM ENTRY LEVEL SALES CONSULTANT Office Visit [facility] [address] [place], [place] [phone] Anna Lockhart PA Vaginal Problem (x1-2 weeks) 06/21/2024 Telephone [facility] [address] [place], [place] [phone] Stacy Urias MD Anticoagulation (INR >5) 06/21/2024 Nurse Triage [facility] [address] [place], [place] [phone] Stacy Urias MD Head Injury 06/21/2024 Anticoagulation (warfarin) [facility] [address] [place] [address] Clinic, Farm Inr Anticoagulation 06/21/2024 Travel 06/19/2024 Telephone [facility] [address] [place] [phone] Glenn Lazaro MD Medication Management (Lasix) 06/14/2024 10:00 AM ENTRY LEVEL SALES CONSULTANT Orders Only [facility] [address] [place] [address] Lab, Farm Lab 06/14/2024 Anticoagulation (warfarin) [facility] [address] [place] [address] [facility], [facility] Anticoagulation 06/14/2024 Travel 06/11/2024 10:50 AM ENTRY LEVEL SALES CONSULTANT Office Visit [facility] [address] [place] [address] Stacy Urias MD Cough (X one month but got much worse this weekend. Patient is audially wheezing and cannot stop coughing) 06/11/2024 10:25 AM ENTRY LEVEL SALES CONSULTANT Ancillary Procedure [facility] [address] [place] [address] 06/11/2024 Telephone [facility] [address] [place] [address] Stacy Urias MD Results 06/11/2024 Anticoagulation (warfarin) [facility] [address] [place] [address] Clinic, [facility] Inr Anticoagulation (Chart update: BPA) 06/11/2024 Telephone [facility] [address] [place] [address] Stacy Urias MD Anticoagulation (BPA Azithromycin ) 06/11/2024 Travel 06/07/2024 Nurse Triage [facility] [address] [place] [address] Stacy Urias MD Cough 05/27/2024 Refill [facility] [address] [place] [address] Stacy Urias MD Refill Request (Metformin) 05/22/2024 10:00 AM ENTRY LEVEL SALES CONSULTANT Orders Only [facility] [address] [place] [address] Lab, Farm Lab 05/22/2024 Anticoagulation (warfarin) [facility] [address] [place] [address] Clinic, [facility] Inr Anticoagulation 05/22/2024 Travel 05/13/2024 Telephone [facility] [address] [phone] Glenn Lazaro MD Medication Management (Metoprolol) 05/03/2024 3:30 PM ENTRY LEVEL SALES CONSULTANT Office Visit [facility] [address] [phone] Glenn Lazaro MD CV Valve Est (VALVE EST: 30DAY S/P MITRACLIP, LABS ECHO PRIOR, NEEDS EKG, KCCQ12, LETTER GIVEN, HJK//PCP: Stacy Urias MD/) 05/03/2024 3:00 PM ENTRY LEVEL SALES CONSULTANT Orders Only [facility] [address] [place] [phone] Lab 05/02/2024 2:00 PM ENTRY LEVEL SALES CONSULTANT Office Visit [facility] [address] [place] [address] Hay Ellsworth, OD Eye Exam (DM CEE) 05/02/2024 Travel 05/02/2024 Orders Only [facility] [address] [phone] VerónicaGlenn Maldonado MD <No scans attached> 04/28/2024 Refill [facility] [address] [place] [address] Stacy Urias MD Refill Request (Glipizide Extended-release) 04/24/2024 Refill [facility] [address] [place] [address] Stacy Urias MD Refill Request (Glipizide/) 04/17/2024 2:00 PM ENTRY LEVEL SALES CONSULTANT Office Visit [facility] [address] [place] [address] Mitch Garcia, AuD Hearing Problem 04/17/2024 Travel 04/16/2024 1:20 PM ENTRY LEVEL SALES CONSULTANT Office Visit [facility] [address] [place] [address] Stacy Urias MD Diabetes (follow up) 04/16/2024 Telephone [facility] [address] [place] [address] Stacy Urias MD Results 04/16/2024 Anticoagulation (warfarin) [facility] [address] [place] [address] Clinic, [facility] Inr Anticoagulation 04/15/2024 2:00 PM ENTRY LEVEL SALES CONSULTANT Orders Only [facility] [address] [place] [address] Lab, Farm Lab 04/15/2024 11:00 AM ENTRY LEVEL SALES CONSULTANT Ancillary Procedure [facility] [address] [place] [address] 04/15/2024 Travel 04/14/2024 Refill [facility] [address] [place] [address] Stacy Urias MD Refill Request (Warfarin) 04/05/2024 2:00 PM ENTRY LEVEL SALES CONSULTANT Orders Only [facility] [address] [place] [address] Lab, Farm Lab 04/05/2024 Telephone [facility] [address] [place] [address] Stacy Urias MD Anticoagulation (Dosing to PCP) 04/05/2024 Anticoagulation (warfarin) [facility] [address] [place] [address] Clinic, Farm Inr Anticoagulation 04/05/2024 Travel 03/29/2024 10:50 AM ENTRY LEVEL SALES CONSULTANT Office Visit [facility] [address] [place] [address] Stacy Urias MD [facility] F/U (03/22/24 patient was seen due to her mitral valve regurgitation, patient has had nose bleeds, back pain, eye sight is not the same as usual ) 03/29/2024 10:15 AM ENTRY LEVEL SALES CONSULTANT Orders Only [facility] [address] [place] [address] Lab, Farm Lab 03/29/2024 Anticoagulation (warfarin) [facility] [address] [place] [address] [facility], [facility] Inr Anticoagulation (Provider OV) 03/26/2024 1:00 PM ENTRY LEVEL SALES CONSULTANT Orders Only [facility] [address] [place] [address] Lab, Farm Lab 03/26/2024 Telephone [facility] [address] [place] [address] Stacy Urias MD Anticoagulation (Dosing review) 03/26/2024 Anticoagulation (warfarin) [facility] [address] [place] [address] Clinic, Farm Inr Anticoagulation 03/26/2024 Travel 03/25/2024 Patient Outreach [facility] [address] [place] [address] Blanca Chinchilla, GUSTABO Primary RN Care Management; Hospital F/U (S/P mitral valve clip implantation, DOD: 03/23/24, LACE+: 55) 03/24/2024 Telephone [facility] [address] [facility] [address] [place] [address] Leobardo Be MD, PhD Concerns 03/22/2024 2:08 PM ENTRY LEVEL SALES CONSULTANT Anesthesia Event [facility] [address] [place], [place] [phone] Wendi Reed MD [place], Lorrie Toledo, FORM BUILDER HELPER 03/22/2024 9:34 AM ENTRY LEVEL SALES CONSULTANT - 03/23/2024 11:30 AM ENTRY LEVEL SALES CONSULTANT Hospital Encounter [facility] [address] [place] [address] Leobardo Be MD, PhD Nick Olsen MD [place] S/P mitral valve clip implantation (Primary Dx); Mitral valve insufficiency, unspecified etiology; H/O aortic valve replacement Discharge Disposition: Home Self Care 03/22/2024 Travel from Last 3 Months Immunizations Name Administration Dates Next Due COVID-19 vaccine ([employer] 30mcg/0.3mL) PFJULIA 08/06/2020,07/16/2020 HepA-HepB (Twinrix) 10/11/2013 [...] on file Legal Sex Female 5:21 AM ENTRY LEVEL SALES CONSULTANT Gender Identity Not on file Sexual Orientation [...] Comments Blood Pressure 100/62 06/21/2024 9:39 AM ENTRY LEVEL SALES CONSULTANT Pulse 90 06/21/2024 9:39 AM ENTRY LEVEL SALES CONSULTANT Temperature 36.4 C (97.6 F) 06/21/2024 9:39 AM ENTRY LEVEL SALES CONSULTANT Respiratory Rate 18 03/23/2024 5:19 AM ENTRY LEVEL SALES CONSULTANT Oxygen Saturation 96% 06/11/2024 10:14 AM ENTRY LEVEL SALES CONSULTANT Inhaled Oxygen Concentration - - Weight 53.7 kg (118 lb 4.8 oz) 06/21/2024 9:39 A M ENTRY LEVEL SALES CONSULTANT Height 149.9 cm (4' 11) 05/03/2024 2:58 PM ENTRY LEVEL SALES CONSULTANT Body Mass Index 23.89 05/03/2024 2:58 PM ENTRY LEVEL SALES CONSULTANT Plan of Treatment Health Maintenance Due Date [...] Diagnosis Comments PROTIME-INR Routine 06/21/2024 10:26 AM ENTRY LEVEL SALES CONSULTANT H/O aortic valve replacement Anticoagulation monitoring, INR range 2.5-3.5 URINALYSIS MICROSCOPIC Routine 06/21/2024 10:26 AM ENTRY LEVEL SALES CONSULTANT Dysuria Urinary frequency URINALYSIS MACROSCOPIC - [facility] ONLY POC DIP (QUEST) Routine 06/21/2024 10:07 AM ENTRY LEVEL SALES CONSULTANT Dysuria Urinary frequency INR,POCT Routine 06/14/2024 10:01 AM ENTRY LEVEL SALES CONSULTANT H/O aortic valve replacement Anticoagulation monitoring, INR range 2.5-3.5 XR CHEST 2 VIEWS PA AND LATERAL Routine 06/11/2024 10:34 AM ENTRY LEVEL SALES CONSULTANT Upper respiratory tract infection, unspecified type Acute cough INR,POCT Routine 05/22/2024 10:09 AM ENTRY LEVEL SALES CONSULTANT H/O aortic valve replacement Anticoagulation monitoring, INR range 2.5-3.5 CBC W PLT NO DIFF Routine 05/03/2024 2:5 4 PM ENTRY LEVEL SALES CONSULTANT S/P mitral valve clip implantation Nonrheumatic mitral valve disorder, unspecified BASIC METABOLIC PANEL Routine 05/03/2024 2:54 PM ENTRY LEVEL SALES CONSULTANT S/P mitral valve clip implantation EKG 12 LEAD Routine 05/03/2024 2:52 PM ENTRY LEVEL SALES CONSULTANT Severe mitral regurgitation HEMOGLOBIN A1C MONITORING (POCT) Routine 04/15/2024 4:44 PM ENTRY LEVEL SALES CONSULTANT Type 2 diabetes mellitus with diabetic polyneuropathy, without long-term current use of insulin (HC) RED CELL MORPHOLOGY Routine 04/15/2024 1 :57 PM ENTRY LEVEL SALES CONSULTANT Severe mitral regurgitation PROTIME-INR Routine 04/15/2024 1:57 PM ENTRY LEVEL SALES CONSULTANT H/O aortic valve replacement Anticoagulation monitoring, INR range 2.5-3.5 CBC W PLT NO DIFF Routine 04/15/2024 1:5 7 PM ENTRY LEVEL SALES CONSULTANT Severe mitral regurgitation BASIC METABOLIC PANEL Routine 04/15/2024 1:57 PM ENTRY LEVEL SALES CONSULTANT Severe mitral regurgitation ECHO TTE LIMITED W CONTRAST Routine 04/15/2024 12:03 PM ENTRY LEVEL SALES CONSULTANT Severe mitral regurgitation INR,POCT Routine 04/05/2024 1:50 PM ENTRY LEVEL SALES CONSULTANT H/O aortic valve replacement Anticoagulation monitoring, INR range 2.5-3.5 PROTIME-INR Routine 03/29/2024 11:30 AM ENTRY LEVEL SALES CONSULTANT H/O aortic valve replacement Anticoagulation monitoring, INR range 2.5-3.5 PLATELET COUNT STAT 03/26/2024 12:55 PM ENTRY LEVEL SALES CONSULTANT H/O aortic valve replacement Anticoagulation monitoring, INR range 2.5-3.5 PROTIME-INR STAT 03/26/2024 12:55 PM ENTRY LEVEL SALES CONSULTANT H/O aortic valve replacement Anticoagulation monitoring, INR range 2.5-3.5 ECHO TTE LIMITED W CONTRAST W COLOR W DOPPLER Routine 03/23/2024 10:58 AM ENTRY LEVEL SALES CONSULTANT EKG 12 LEAD Early AM 03/23/2024 6:03 AM ENTRY LEVEL SALES CONSULTANT APTT Timed 03/23/2024 5:01 AM ENTRY LEVEL SALES CONSULTANT PROTIME-INR Early AM 03/23/2024 5:01 AM ENTRY LEVEL SALES CONSULTANT BASIC METABOLIC PANEL Early AM 03/23/2024 5:01 AM ENTRY LEVEL SALES CONSULTANT CBC W PLT NO DIFF Early AM 03/23/2024 5:0 1 AM ENTRY LEVEL SALES CONSULTANT EKG 12 LEAD RIVKA 03/22/2024 5:33 PM ENTRY LEVEL SALES CONSULTANT CREATININE RIVKA 03/22/2024 4:11 PM ENTRY LEVEL SALES CONSULTANT BUN RIVKA 03/22/2024 4:11 PM ENTRY LEVEL SALES CONSULTANT HEMATOCRIT RIVKA 03/22/2024 4:11 PM ENTRY LEVEL SALES CONSULTANT HEMOGLOBIN RIVKA 03/22/2024 4:11 PM ENTRY LEVEL SALES CONSULTANT PLATELET COUNT RIVKA 03/22/2024 4:11 PM ENTRY LEVEL SALES CONSULTANT APTT RIVKA 03/22/2024 4:11 PM ENTRY LEVEL SALES CONSULTANT PROTIME-INR RIVKA 03/22/2024 4:11 PM ENTRY LEVEL SALES CONSULTANT ECHO LIGIA TRANSCATHETER INTRAOP PROCEDURE Routine 03/22/2024 3:43 PM ENTRY LEVEL SALES CONSULTANT Mitral valve insufficiency, unspecified etiology HCHG ACTIVATED CLOTTING TM CV Timed 03/22/2024 3:23 PM ENTRY LEVEL SALES CONSULTANT HCHG ACTIVATED CLOTTING TM CV Timed 03/22/2024 2:58 PM ENTRY LEVEL SALES CONSULTANT ENDOTRACHEAL TUBE Routine 03/22/2024 2:5 2 PM ENTRY LEVEL SALES CONSULTANT ENDOTRACHEAL TUBE Routine 03/22/2024 2:5 2 PM ENTRY LEVEL SALES CONSULTANT CVL OTHER PROCEDURE Routine 03/22/2024 2 :43 PM ENTRY LEVEL SALES CONSULTANT RBC W/O TYPE & SCREEN STAT 03/22/2024 1:43 PM ENTRY LEVEL SALES CONSULTANT RED BLOOD CELLS EA UNIT STAT 03/22/2024 1:40 PM ENTRY LEVEL SALES CONSULTANT RED BLOOD CELLS EA UNIT STAT 03/22/2024 1:40 PM ENTRY LEVEL SALES CONSULTANT PROTIME-INR Today 03/22/2024 11:57 AM ENTRY LEVEL SALES CONSULTANT TYPE & SCREEN Preop 03/22/2024 11:54 AM ENTRY LEVEL SALES CONSULTANT GLUCOSE, FASTING Preop 03/22/2024 11:5 4 AM ENTRY LEVEL SALES CONSULTANT SCAN-CARDIAC STRIP 03/22/2024 12 :00 AM ENTRY LEVEL SALES CONSULTANT XR DXA BONE DENSITY 2 SITES AXIAL Routine 05/26/2009 2:09 PM ENTRY LEVEL SALES CONSULTANT Osteopenia from Last 3 Months or Most Recently Relevant to Health Maintenance Results * URINALYSIS MICROSCOPIC (06/21/2024 10:26 AM ENTRY LEVEL SALES CONSULTANT) RBC 0-2 0-2, None Seen /HPF 06/21/2024 3:37 PM ENTRY LEVEL SALES CONSULTANT [facility] WBC 0-2 0-2, 3-5, None Seen /HPF 06/21/2024 3:37 PM ENTRY LEVEL SALES CONSULTANT [facility] BACTERIA None Seen None Seen, Rare, Few Bacteria/ HPF 06/21/2024 3:37 PM ENTRY LEVEL SALES CONSULTANT [facility] EPITHELIAL CELLS None Seen None Seen, Few Epi/HPF 06/21/2024 3:37 PM ENTRY LEVEL SALES CONSULTANT [facility] HYALINE CASTS 3-5 0-2, 3-5 /LPF 06/21/2024 3:37 PM ENTRY LEVEL SALES CONSULTANT [facility] Urine URINE SPECIMEN / Unknown Non-Blood / Unknown 06/21/2024 10:26 AM ENTRY LEVEL SALES CONSULTANT 06/21/2024 10:26 AM ENTRY LEVEL SALES CONSULTANT Anna CELESTIN URINE Final Result [facility] [address] [place] [address], [place] * (ABNORMAL) PROTIME-INR [[id number]] - Standing Order (06/21/2024 10:26 AM ENTRY LEVEL SALES CONSULTANT) Only the most recent of7 resultswithin the time period is included. INR >16.0(HH) <1.3 06/21/2024 4:38 PM ENTRY LEVEL SALES CONSULTANT [facility] PROTIME >160.0(H) 10.6 - 12.4 sec 06/21/2024 4:38 PM ENTRY LEVEL SALES CONSULTANT [facility] Blood BLOOD SPECIMEN / Unknown [facility] / Unknown 06/21/2024 10:26 AM ENTRY LEVEL SALES CONSULTANT 06/21/2024 10:26 AM ENTRY LEVEL SALES CONSULTANT Narrative [facility] - 06/21/2024 4:38 PM ENTRY LEVEL SALES CONSULTANT Therapeutic Range 2.0-3.0 for most anticoagulated patients [...] Stacy Urias MD HEMATOLOGY Final Resul t [facility] [address] [place] [address], [place] * (ABNORMAL) POCT Urinalysis Dipstick Only (06/21/2024 10:07 AM ENTRY LEVEL SALES CONSULTANT) PH 5.5 5.0 - 8.0 [facility] SPECIFIC GRAVITY 1.010 1.001 - 1.035 [facility] GLUCOSE 2+(A) NEGATIVE [facility] BILIRUBIN NEGATIVE NEGATIVE [facility] KETONES NEGATIVE NEGATIVE [facility] OCCULT BLOOD 1+(A) NEGATIVE [facility] PROTEIN NEGATIVE NEGATIVE [facility] NITRITE NEGATIVE NEGATIVE [facility] LEUKOCYTE ESTERASE NEGATIVE NEGATIVE [facility] Urine URINE SPECIMEN / Unknown 06/21/2024 10:07 AM ENTRY LEVEL SALES CONSULTANT 06/21/2024 10:13 AM ENTRY LEVEL SALES CONSULTANT Anna CELESTIN URINE Final Result Performing Organization Address City/[facility]/ZIP Co de Phone Number [facility] [address] [facility]3][place] [address], [facility] [address] [place] [address] * (ABNORMAL) INR - POCT [[id number]] - Standing Order (06/14/2024 10:01 AM ENTRY LEVEL SALES CONSULTANT) Only the most recent of3 resultswithin the time period is included. INR 2.4(H) ratio [facility] Comment: INRs >2.9 may be falsely elevated [...] PROTHROMBIN TIMEP 28.4(H) 10.5 - 13.1 sec [facility] Comment: Point of care fingerstick Prothrombin Time/INR results may vary from venous Prothrombin Time/INR methodologies. Any results exhibiting inconsistency with the patient's clinical status should be repeated using a venous Prothrombin Time/INR method. Blood BLOOD SPECIMEN / Unknown 06/14/2024 10:01 AM ENTRY LEVEL SALES CONSULTANT 06/14/2024 10:02 AM ENTRY LEVEL SALES CONSULTANT Stacy Urias MD LABORATORY Final Resul t [facility] [address] [place] [address], [facility] [address] [place] [address] * XR CHEST 2 VIEWS PA AND LATERAL (06/11/2024 10:34 AM ENTRY LEVEL SALES CONSULTANT) Anatomical Region Laterality Modality CHEST, THORAX, Lung, HEART Compu zainab Radiography 06/11/2024 1:19 PM ENTRY LEVEL SALES CONSULTANT Impressions 06/11/2024 1:19 PM ENTRY LEVEL SALES CONSULTANT Small pleural effusions. No infiltrate. Dictated by Raul Almanza MD @ 06/11/2024 1:19:12 PM (Electronically Signed) Narrative 06/11/2024 1:19 PM ENTRY LEVEL SALES CONSULTANT For Patients: As a result of the [...] W PLT NO DIFF (05/03/2024 2:54 PM ENTRY LEVEL SALES CONSULTANT) Only the most recent of3 resultswithin the time period is included. WHITE BLOOD COUNT 6.5 4.5 - 11.0 thou/cu mm 05/03/2024 3:09 PM [facility] RED BLOOD COUNT 4.35 4.00 - 5.20 mil/cu mm 05/03/2024 3:09 PM [facility] HEMOGLOBIN 10.6(L) 12.0 - 16.0 g/dL 05/03/2024 3:09 PM [facility] HEMATOCRIT 35.4 33.0 - 51.0 % 05/03/2024 3:09 PM [facility] MCV 81 80 - 100 fL 05/03/2024 3:09 PM [facility] MCH 24.4(L) 26.0 - 34.0 pg 05/03/2024 3:09 PM [facility] MCHC 29.9(L) 32.0 - 36.0 g/dL 05/03/2024 3:09 PM [facility] RDW 15.6(H) 11.5 - 15.5 % 05/03/2024 3:09 PM [facility] PLATELET COUNT 306 140 - 440 thou/cu mm 05/03/2024 3:09 PM [facility] MPV 10.3 6.5 - 11.0 fL 05/03/2024 3:09 PM [facility] NRBC 0.0 % 05/03/2024 3:09 PM [facility] ABS NRBC 0.0 thou /cu mm 05/03/2024 3:09 PM [facility] Blood BLOOD SPECIMEN / Unknown Venipuncture / Unknown 05/03/2024 2:54 PM ENTRY LEVEL SALES CONSULTANT 05/03/2024 3:03 PM ENTRY LEVEL SALES CONSULTANT us Glenn Lazaro MD HEMATOLOGY Final Result [facility] [address] [place] [address], [place] * (ABNORMAL) BASIC METABOLIC PANEL (05/03/2024 2:54 PM ENTRY LEVEL SALES CONSULTANT) Only the most recent of3 resultswithin the time period is included. SODIUM 137 136 - 145 mmol/L 05/03/2024 3:32 PM ENTRY LEVEL SALES CONSULTANT [facility] POTASSIUM 5.0 3.5 - 5.1 mmol/L 05/03/2024 3:32 PM ENTRY LEVEL SALES CONSULTANT [facility] CHLORIDE 101 98 - 107 mmol/L 05/03/2024 3:32 PM ENTRY LEVEL SALES CONSULTANT [facility] CO2,TOTAL 26 22 - 29 mmol/L 05/03/2024 3:32 PM ENTRY LEVEL SALES CONSULTANT [facility] ANION GAP 10 5 - 18 05/03/2024 3:32 PM ENTRY LEVEL SALES CONSULTANT [facility] GLUCOSE 161(H) 70 - 99 mg/dL 05/03/2024 3:32 PM ENTRY LEVEL SALES CONSULTANT [facility] CALCIUM 9.3 8.8 - 10.4 mg/dL 05/03/2024 3:32 PM ENTRY LEVEL SALES CONSULTANT [facility] Comment: Reference ranges for this test were updated on 03/19/2024 to reflect our healthy population more accurately. Reference range changes are not retroactively applied to results, but previous results using the same methodology can be interpreted in the context of the new reference range. BUN 29(H) 8 - 23 mg/dL 05/03/2024 3:32 PM ENTRY LEVEL SALES CONSULTANT [facility] CREATININE 0.89 0.50 - 0.90 mg/dL 05/03/2024 3:32 PM ENTRY LEVEL SALES CONSULTANT [facility] BUN/CREAT RATIO 33(H) 10 - 20 4 3:32 PM ENTRY LEVEL SALES CONSULTANT [facility] eGFR 63(L) >90 mL/min/1. 73m2 05/03/2024 3:32 PM ENTRY LEVEL SALES CONSULTANT [facility] Comment:As of 2021, eG FR is calculated by the CKD-EPI creatinine equation without race adjustment. eGFR can be influenced by muscle mass, exercise, and diet. The reported eGFR is an estimation only and is only applicable if the renal function is stable. Blood BLOOD SPECIMEN / Unknown Venipuncture / Unknown 05/03/2024 2:54 PM ENTRY LEVEL SALES CONSULTANT 05/03/2024 3:03 PM ENTRY LEVEL SALES CONSULTANT Glenn Lazaro MD CHEMISTRY Final Result [facility] [address] [place] [id number], [place] * EKG 12 LEAD (05/03/2024 2:52 PM ENTRY LEVEL SALES CONSULTANT) Only the most recent of3 resultswithin the time period is included. Pathologist [facility] Interpretation Atrial fibrillation with rapid ventricular response with a competing junctional pacemaker Right superior axis deviation Non-specific intra-ventricul ar conduction block Cannot rule out Anterior infarct , age undetermined T wave abnormality, consider lateral ischemia Abnormal ECG Ventricular Rate 104 BPM Atrial Rate BPM P-R Interval ms QRS Duration 140 ms QT 396 ms QTc 520 ms P [place] degrees R [place] 266 degrees T [place] 96 degrees 05/03/2024 2:52 PM ENTRY LEVEL SALES CONSULTANT 05/05/2024 1:41 PM ENTRY LEVEL SALES CONSULTANT Yao Macedo LOOPING INSPECTOR EKG ORD Final Resul t * (ABNORMAL) POCT Hemoglobin A1C Monitoring (04/15/2024 4:44 PM ENTRY LEVEL SALES CONSULTANT) [facility] [facility] POC HEMOGLOBIN A1C 6.9(H) <6.0 % OF TOTAL HGB [facility] Comment: Any point of care results exhibiting inconsistency with the patient's clinical status should be repeated using a different testing method. Blood BLOOD SPECIMEN / Unknown 04/15/2024 4:44 PM ENTRY LEVEL SALES CONSULTANT 04/15/2024 4:44 PM ENTRY LEVEL SALES CONSULTANT us Stacy Urias MD CHEMISTRY Final Resul t [facility] [address] [place] [address], [place] [phone] [facility] [address], [place] [address] * (ABNORMAL) RED CELL MORPHOLOGY (04/15/2024 1:57 PM ENTRY LEVEL SALES CONSULTANT) ECHINOCYTES Few 04/15/2024 11:44 PM ENTRY LEVEL SALES CONSULTANT [facility] ELLIPTOCYTES Moderate 04/15/2024 11:44 PM ENTRY LEVEL SALES CONSULTANT [facility] POLYCHROMASIA Slight 04/15/2024 11:44 PM ENTRY LEVEL SALES CONSULTANT [facility] RBC COMMENT Present(A) RBC morphology appears normal, RBC morphology within normal limits for newborns. 04/15/2024 11:44 PM ENTRY LEVEL SALES CONSULTANT [facility] Blood BLOOD SPECIMEN / Unknown [facility] / Unknown 04/15/2024 1:57 PM ENTRY LEVEL SALES CONSULTANT 04/15/2024 1:57 PM ENTRY LEVEL SALES CONSULTANT Narrative [facility] 04/15/2024 11:44 PM ENTRY LEVEL SALES CONSULTANT This procedure was originally ordered at [facility]. us Yao Macedo NP HEMATOLOGY Final Resul t Performing Organization Address City/[facility]/ZIP Co de Phone Number [facility] [address] [place] [address], [place] * ECHO TTE LIMITED W CONTRAST (04/15/2024 12:03 PM ENTRY LEVEL SALES CONSULTANT) Only the most recent of2 resultswithin the time period is included. PEAK TR VELOCITY 3.2 m/s LVEDD 4.2 cm EJECTION FRACTION 40 - 45% AORTIC VALVE MEAN PG 12 mmHg Anatomical Region Laterality Modality Ultrasound 04/15/2024 11:1 0 AM ENTRY LEVEL SALES CONSULTANT Narrative 04/15/2024 12:30 PM ENTRY LEVEL SALES CONSULTANT ECHOCARDIOGRAM EMILEE CHEN : 1935 89 years Study Date: 04/15/2024 11:10:15 AM Gender: F BP: 111/64 mmHg Height: 150.00 cm BSA: 1.47 m Weight: 53.00 kg Tech: [employer] BRANSON Referring MD: YAO MACEDO Site: [facility] Reading Location: Mobile OP Patient Location: Outpatient. [...] documentation: 3 ml diluted Definity, lot #[id number], [facility]# [id number] was administered peripherally to enhance visualization of all left ventricular segments. . This study was interpreted by an [facility] accredited facility. Final Procedure Note Lluvia Keith, [facility] - 04/15/2024 ECHOCARDIOGRAM EMILEE CHEN : 1935 89 years Study Date: 04/15/2024 11:10:15 AM Gender: F BP: 111/64 mmHg Height: 150.00 cm BSA: 1.47 m Weight: 53.00 kg Tech: [employer] BRANSON Referring MD: YAO MACEDO Site: [facility] Reading Location: Mobile OP Patient Location: Outpatient. [...] documentation: 3 ml diluted Definity, lot #[id number], [facility]#[id number] was administered peripherally to enhance visualization of allleft ventricular segments. . This study was interpreted by an [facility] accredited facility. Final us Yao Macedo LOOPING INSPECTOR ECHO ORD Final Resul t * (ABNORMAL) STAT - PLATELET COUNT [09061.2] - Standing Order (03/26/2024 12:55 PM ENTRY LEVEL SALES CONSULTANT) Only the most recent of2 resultswithin the time period is included. PLATELET COUNT 253 140 - 440 thou/cu mm 03/26/2024 3:03 PM ENTRY LEVEL SALES CONSULTANT [facility] TRAL LABORAT[facility] MPV 11.5(H) 6.5 - 11.0 fL 03/26/2024 3:03 PM ENTRY LEVEL SALES CONSULTANT [facility] TRAL LABORATORY Blood BLOOD SPECIMEN / Unknown Venipuncture / Unknown 03/26/2024 12:55 PM ENTRY LEVEL SALES CONSULTANT 03/26/2024 12:55 PM ENTRY LEVEL SALES CONSULTANT Stacy Urias MD HEMATOLOGY Final Resul t Performing Organization Address City/[facility]/ZIP Co de Phone Number [facility] [address] [place] [address], [place] * (ABNORMAL) APTT (03/23/2024 5:01 AM ENTRY LEVEL SALES CONSULTANT) Only the most recent of2 resultswithin the time period is included. APTT 58(H) 25 - 36 sec 03/23/2024 5:49 AM ENTRY LEVEL SALES CONSULTANT [facility] Blood BLOOD SPECIMEN / Unknown Venipuncture / Unknown 03/23/2024 5:01 AM ENTRY LEVEL SALES CONSULTANT 03/23/2024 5:21 AM ENTRY LEVEL SALES CONSULTANT Narrative [facility] - 03/23/2024 5:49 AM ENTRY LEVEL SALES CONSULTANT Therapeutic Range: 59-89 seconds Nick Olsen MD HEMATOLOGY Final Result Performing Organization Address [facility] Co de Phone Number [facility] [address] [place] [address], [place] * (ABNORMAL) HEMOGLOBIN (03/22/2024 4:11 PM ENTRY LEVEL SALES CONSULTANT) HEMOGLOBIN 10.6(L) 12.0 - 16.0 g/dL 03/22/2024 4:26 PM ENTRY LEVEL SALES CONSULTANT [facility] MCV 87 80 - 100 fL 03/22/2024 4:26 PM ENTRY LEVEL SALES CONSULTANT [facility] Blood BLOOD SPECIMEN / Unknown Butterfly / Unknown 03/22/2024 4:11 PM ENTRY LEVEL SALES CONSULTANT 03/22/2024 4:21 PM ENTRY LEVEL SALES CONSULTANT Narrative [facility] - 03/22/2024 4:26 PM ENTRY LEVEL SALES CONSULTANT Obtain before initiating IV heparin therapy if not done within previous 24 hours. Obtain before initiating IV heparin therapy if not done within previous 24 hours. Obtain before initiating IV heparin therapy if not done within previous 24 hours. Charley CELESTIN HEMATOLOGY Fi nal Result Performing Organization Address [facility]/ZIP Co de Phone Number [facility] [address] [place] [address], [place] * HEMATOCRIT (03/22/2024 4:11 PM ENTRY LEVEL SALES CONSULTANT) HEMATOCRIT 34.3 33.0 - 51.0 % 03/22/2024 4:26 PM ENTRY LEVEL SALES CONSULTANT [facility] Blood BLOOD SPECIMEN / Unknown Butterfly / Unknown 03/22/2024 4:11 PM ENTRY LEVEL SALES CONSULTANT 03/22/2024 4:21 PM ENTRY LEVEL SALES CONSULTANT Narrative [facility] - 03/22/2024 4:26 PM ENTRY LEVEL SALES CONSULTANT Obtain before initiating IV heparin therapy if not done within previous 24 hours. Obtain before initiating IV heparin therapy if not done within previous 24 hours. Obtain before initiating IV heparin therapy if not done within previous 24 hours. Charley CELESTIN HEMATOLOGY Fi nal Result Performing Organization Address [facility] Co de Phone Number [facility] [address] [place] [address], [place] * BUN (03/22/2024 4:11 PM ENTRY LEVEL SALES CONSULTANT) BUN 20 8 - 23 mg/dL 03/22/2024 4:46 PM ENTRY LEVEL SALES CONSULTANT [facility] Blood BLOOD SPECIMEN / Unknown Butterfly / Unknown 03/22/2024 4:11 PM ENTRY LEVEL SALES CONSULTANT 03/22/2024 4:21 PM ENTRY LEVEL SALES CONSULTANT Charley CELESTIN CHEMISTRY Fi nal Result Performing Organization Address City/[facility]/ZIP Co de Phone Number [facility] [address] [place] [address], [place] * (ABNORMAL) CREATININE (03/22/2024 4:11 PM ENTRY LEVEL SALES CONSULTANT) eGFR 74(L) >90 mL/min/1.7 3m2 03/22/2024 4:46 PM ENTRY LEVEL SALES CONSULTANT [facility] Comment:As of 2021, eG FR is calculated by the CKD-EPI creatinine equation without race adjustment. eGFR can be influenced by muscle mass, exercise, and diet. The reported eGFR is an estimation only and is only applicable if the renal function is stable. CREATININE 0.78 0.50 - 0.90 mg/dL 03/22/2024 4:46 PM ENTRY LEVEL SALES CONSULTANT [facility] Blood BLOOD SPECIMEN / Unknown Butterfly / Unknown 03/22/2024 4:11 PM ENTRY LEVEL SALES CONSULTANT 03/22/2024 4:21 PM ENTRY LEVEL SALES CONSULTANT Charley CELESTIN CHEMISTRY Fi nal Result Performing Organization Address City/State/[facility] Co de Phone Number [facility] [address] [address], * ECHO LIGIA TRANSCATHETER INTRAOP PROCEDURE (03/22/2024 3:43 PM ENTRY LEVEL SALES CONSULTANT) EJECTION FRACTION 55 - 60% Anatomical Region Laterality Modality HEART Ultrasound 03/22/2024 3:27 PM ENTRY LEVEL SALES CONSULTANT Narrative 03/22/2024 3:53 PM ENTRY LEVEL SALES CONSULTANT TRANSESOPHAGEAL ECHOCARDIOGRAM EMILEE CHEN : 1935 89 years Study Date: 03/22/2024 3:27:42 PM Gender: F BP: 140/60 mmHg Height: 148.00 cm BSA: 1.45 m Weight: 53.00 kg Tech: Kath ART: [id number] Leobardo Be MD Site: [facility] Reading Location: [facility] Patient Location: Procedure: LIGIA, Color Doppler, [...] mmHg . Final Procedure Note Lluvia Keith, [facility] - 03/22/2024 TRANSESOPHAGEAL ECHOCARDIOGRAM EMILEE CHEN : 1935 89 years Study Date: 03/22/2024 3:27:42 PM Gender: F BP: 140/60 mmHg Height: 148.00 cm BSA: 1.45 m Weight: 53.00 kg Tech: Referring : [id number] Leobardo Baugh Site: [facility] Reading Location: [facility] Patient Location: Procedure: LIGIA, Color Doppler, Spectral Doppler and 3D Imaging. Indication for study: Intra-Procedural LIGIA for MitraClip (1 NT); goodautoCFQ Cardiac Rhythm: Regular.Study quality: Excellent. Final Impressions: 1. Mildly increased left ventricular size, normal global systolicfunction with an estimated EF of 55 - 60%. 2. Mildly enlarged left atrium. 3. The mitral valve is Degenerative with a localised flail of the Q9obhvbid. There is calcification of the mitral chords. [...] al Result * (ABNORMAL) ACTIVATED CLOTTING TIME [id number] ACT (03/22/2024 3:23 PM ENTRY LEVEL SALES CONSULTANT) Only the most recent of2 resultswithin the time period is included. [facility] ACTIVATED CLOTTING TIME, POCT 223(H) 74 - 125 sec 03/26/2024 6:20 AM ENTRY LEVEL SALES CONSULTANT [facility] Blood BLOOD SPECIMEN / Unknown 03/22/2024 3:23 PM ENTRY LEVEL SALES CONSULTANT 03/26/2024 6:20 AM ENTRY LEVEL SALES CONSULTANT Leobardo Be MD, PhD HEMATOLOGY Fin al Result [facility] [address] [place] [address], * HCHG TUBE PR1, HCHG STYLET PR1 (03/22/2024 2:52 PM ENTRY LEVEL SALES CONSULTANT) Narrative Lorrie Pate CRNA - 03/22/2024 2:52 PM ENTRY LEVEL SALES CONSULTANT Lorrie Ptae CRNA 03/22/2024 2:52 PM Procedure: ETT Patient [...] * CVL OTHER PROCEDURE (03/22/2024 2:43 PM ENTRY LEVEL SALES CONSULTANT) Anatomical Region Laterality Modality X-Ray Angiograph y, X-Ray Angiography 03/22/2024 2:43 PM ENTRY LEVEL SALES CONSULTANT Narrative Procedure Note Leobardo Be MD - 03/22/2024 3:44 PM CST DATE OF SERVICE: 03/22/24 PRE-OPERATIVE DIAGNOSIS: Severe symptomatic tricuspid regurgitation POST-OPERATIVE DIAGNOSIS: Trivial MR, s/p transcatheter MV repair withNT CENTRIFUGAL SCREEN TENDER: Leobardo Be MD, PhD Lluvia Keith, [facility] SABI Dockery The risks, benefits, alternatives [...] of3.8 cm in standard fashion with a [place] C0 needle, with confirmation ofthe location in [...] in hemodynamically stablecondition. Leobardo Be MD, PhD, [facility] Medical Social Consultant [facility] [address], [address] [place] [address] O: [phone] F: [phone] Transcriptions Leobardo Be MD - 03/22/2024 6:22 PM CST [facility] Cardiac Catheterization Report Name: EMILEE CHEN Event Date: 03/22/2024 14:43 Excellian ID #: [id number] TIAN #: [id number] Patient Class: Outpatient Diagnostic Physician: LEOBARDO BE [facility] Interventional Physician: LEOBARDO BE [facility] Referring Physician: Primary Care Physician: STACY URIAS [...] with primary physician * Follow up with manual machinist Consent & Celeste Protocol The risks, benefits, and alternatives of the procedure were discussed withthe patient and written informed consent was obtained. Celeste protocol was followed. TIME OUT conducted just prior tostarting procedure confirmed patient identity, site/side, procedure,patient position, and availability of correct equipment and implants (ifapplicable). Staff Name Title Leobardo Be Medical Social Consultant Charley Spencer Physician Sealer Sander Edith Giordano RN Nurse Germain Ji CVT Monitor Lindy Ely CVT Clinical Business Manager TyMercedez ware CVT Clinical Business Manager Procedures ? Ultrasound Guided Vascular Access ? [...] with status of Final Leobardo Be MD [facility] [address] [place] [address] (p) [phone](f) us Leobardo Be MD, PhD CV IMAGING Saud zainab Result - Final * RBC W/O TYPE & SCREEN (03/22/2024 1:43 PM ENTRY LEVEL SALES CONSULTANT) [facility] QUANTITY 2 03/22/2024 1:4 3 PM ENTRY LEVEL SALES CONSULTANT [facility] [place] [facility] BLOOD BANK Blood BLOOD SPECIMEN / Unknown 03/22/2024 1:38 PM ENTRY LEVEL SALES CONSULTANT us Leobardo Be MD, PhD BLOOD BANK Saud zainab Result - Final [facility] BLOOD BANK [address] [place] [address], [place] [phone] * RED BLOOD CELLS EA UNIT (03/22/2024 1:40 PM ENTRY LEVEL SALES CONSULTANT) Only the most recent of2 resultswithin the time period is included. [facility] CROSSMATCH Compatible Compatible [facility] BLOOD BANK PRODUCT BLOOD TYPE O Rh Positive [facility] LAB BLOOD BANK PRODUCT ID NUMBER [id number] [facility] BLOOD BANK PRODUCT STATUS /Relea sed [facility] LAB BLOOD BANK PRODUCT DESCRIPTION RBC -1 LR [facility] LAB BLOOD BANK PRODUCT CODE [id number] [facility] LAB BLOOD BANK Leobardo Be MD, PhD BLOOD BANK Saud zainab Result - Final [facility] LAB BLOOD BANK [address] [place] [address], * TYPE & SCREEN (03/22/2024 11:54 AM ENTRY LEVEL SALES CONSULTANT) ABORH O Rh Positive 03/22/2024 12:52 PM ENTRY LEVEL SALES CONSULTANT [facility] LAB BLOOD BANK ANTIBODY SCREEN Negative Negative 03/22/2024 12:52 PM ENTRY LEVEL SALES CONSULTANT [facility] LAB BLOOD BANK SPECIMEN EXPIRATION DATE/TIME 03/25/24 23:59 03/22/2024 12:52 PM ENTRY LEVEL SALES CONSULTANT [facility] LAB BLOOD BANK Blood BLOOD SPECIMEN / Unknown Venipuncture / Unknown 03/22/2024 11:54 AM ENTRY LEVEL SALES CONSULTANT 03/22/2024 12:07 PM ENTRY LEVEL SALES CONSULTANT Yao Macedo LOOPING INSPECTOR BLOOD BANK Final Resul t Performing Organization Address City/[facility]/ZIP Co de Phone Number [facility]TRAL LAB BLOOD BANK [address] [place] [phone], * (ABNORMAL) Glucose, Fasting (03/22/2024 11:54 AM ENTRY LEVEL SALES CONSULTANT) GLUCOSE 102(H) 70 - 99 mg/dL 03/22/2024 12:53 PM ENTRY LEVEL SALES CONSULTANT [facility] Blood BLOOD SPECIMEN / Unknown Venipuncture / Unknown 03/22/2024 11:54 AM ENTRY LEVEL SALES CONSULTANT 03/22/2024 12:07 PM ENTRY LEVEL SALES CONSULTANT us Yao Macedo LOOPING INSPECTOR CHEMISTRY Final Resul t [facility] [address] [place] [address], [place] * SCAN-CARDIAC STRIP (03/22/2024 12:00 AM ENTRY LEVEL SALES CONSULTANT) Narrative 03/22/2024 12:00 AM ENTRY LEVEL SALES CONSULTANT Ordered by an unspecified provider. us Other Clinical Staff OTHER Final Resul t * XR DEXA BONE DENSITY 2 SITES (05/26/2009 2:09 PM ENTRY LEVEL SALES CONSULTANT) Anatomical Region Laterality Modality Spine, HIPS, HIPL, HIPR Other 05/26/2009 2:09 PM ENTRY LEVEL SALES CONSULTANT Narrative 05/29/2009 9:35 AM ENTRY LEVEL SALES CONSULTANT Please see scanned document for results of this study. Procedure Note Lora Krause PA - 06/01/2009 Please see scanned document for results of this study. us Patsy Berrios MD DEXA Maria Elena l Result from Last 3 Months or Most Recently Relevant to Health Maintenance Insurance MEDICARE PB ONLY MEDICARE PART A HB ONLY MEDICARE PART B HB ONLY [facility] Advance Directives * Full Code (Latest [...] Code Status Discussion: Not Discussed Care Teams Mold Filler And Drainer Relationship Specialty [place] [address] [place] [address] PCP - General Family Practice 08/10/21
[2024-06-21 19:03] LABS: Basophils Absolute Auto 0.03 K/uL (0.00-0.30); Basophils Percent Auto 0.4 % (0.0-3.0); Eosinophils Percent Auto 1.4 % (0.0-7.0); Hematocrit 36.5 % (33.0-51.0); Hemoglobin* 10.7 gm/dL (12.0-16.0); Immature Granulocytes Abs Auto 0.03 K/uL (0.00-0.30); Immature Granulocytes Pct Auto 0.4 %; Lymphocytes Percent Auto 18.4 % (20-44); Mean Corpuscular HGB Conc 29 gm/dL (32-36); Mean Corpuscular Hemoglobin 22 pg (26-34); Mean Corpuscular Volume 77 fL (80-100); Monocytes Percent Auto 7.7 % (0.0-11.0); Neutrophils Absolute Auto 5.14 K/uL (1.7-7.0); Neutrophils Percent Auto 71.7 % (42.0-72.0); Platelet Count* 184 K/uL (140-440); RDW Coefficient of Variation % 18.4 % (11.5-15.5); Red Blood Count 4.77 m/uL (4.00-5.20); White Blood Count* 7.17 K/uL (4.50-11.00)
[2024-06-21 19:15] LABS: Slide Review Reflex No
[2024-06-21 19:36] LABS: Prothrombin Time 94.8 Seconds
[2024-06-21 19:37] LABS: INR 10.91 (0.91-1.10)
[2024-06-21] MEDS: PHYTONADIONE (VIT K1) 5 MG TABLET 2.5 MG PO (20:29)
== END 2024-06-21 20:37 | disposition home or self-care (01) ==
PROVIDERS: Emergency Provider Family Medicine; PCP Family Medicine
DX: R79.1 Abnormal coagulation profile (principal); W19.XXXA Unspecified fall, initial encounter
CPT/HCPCS: 36415; 70450; 72125; 85025; 85610; 99283; 99284

== ENCOUNTER 2024-06-22 09:51 | Outpatient (CLI) | payer MEDICARE, BC, SELFPAY ==
[2024-06-22 10:26] LABS: INR 3.78 (0.91-1.10); Prothrombin Time 40.4 Seconds
== END 2024-06-22 09:52 | disposition home or self-care (01) ==
LOC: LAB 09:54
PROVIDERS: Family Medicine; PCP Family Medicine; Visit Provider Family Medicine
DX: R79.1 Abnormal coagulation profile (principal)
CPT/HCPCS: 36415; 85610